=== PATIENT | female | born 1945 | race Caucasian/White ===

== ENCOUNTER 2022-09-11 13:17 | Outpatient (OUT) | payer MEDICARE, OTHER, SELFPAY ==
[2022-09-11 14:45] LABS: Cholesterol 221 mg/dL (<=200); HDL Cholesterol 44 mg/dL (40-60); Thyroid Stimulating Hormone 1.567 uIU/mL (0.358-3.740); Triglycerides 272 mg/dL (<=150); VLDL CHOLESTEROL 54.4 mg/dL
== END 2022-09-11 13:18 | disposition home or self-care (01) ==
LOC: LAB 13:17
PROVIDERS: PCP Internal Medicine; Visit Provider Internal Medicine
DX: E78.5 Hyperlipidemia, unspecified (principal); K59.00 Constipation, unspecified
CPT/HCPCS: 36415; 80061; 84443

== ENCOUNTER 2022-11-10 10:50 | Emergency (ER) | payer MEDICARE, OTHER, SELFPAY ==
[2022-11-10 11:01] VITALS: BP 149/75; PULSE 112; RESP 16; TEMP 36.9; O2SAT 93; BMI 22.1
--- NOTE | 2022-11-10 11:23 | ED_ITS ---
HPI - General Adult General Chief complaint: Extremity Problem, Nontraumatic Stated complaint: R LEG PAIN Time Seen by Provider: 11/10/22 11:00 Source: patient Mode of arrival: Wheelchair Limitations: no limitations History of Present Illness HPI narrative: patient brought in by niece for evaluation after the patient complained of pain in multiple joints and spasms of the right thigh this morning. On questioning the patient has been experiencing intermittent and polyarthralgias and occasional joint swelling without deformity of the fingers or toes. She has not discussed this with her PCP, Dr Archuleta. She said her temp was 100F this morning but she is afebrile here. She denied vomiting or diarrhea - said she has chronic constipation. No history of gout. She took half of a Mobic tab - not prescribed to her - this morning for the pain, which is now improved. Related Data Previous Rx's Medication Instructions Recorded cephalexin 500 mg capsule 500 mg PO BID 7 days #14 caps 11/10/22 Allergies Allergy/AdvReac Type Severity Reaction Status Date / Time No Known Drug Allergies Allergy Verified 11/10/22 11:05 [facility] Social History Smoking status: Never smoker Exam Narrative Exam Narrative: Nurses notes and vital signs reviewed and patient is not hypoxic. afebrile General: Well-appearing and in no apparent distress. Skin: Warm, dry, no pallor noted. No rash. Eye: Pupils are equal, round and EOMI. No scleral icterus. Cardiovascular: Regular Rate and Rhythm without murmur, gallop or rub. Respiratory: No accessory muscle use or respiratory distress. Lungs are clear to auscultation, no wheezing, rales or rhonchi Back: No midline thoracic or lumbar vertebral tenderness. No CVA tenderness Musculoskeletal: normal ROM, no calf or popliteal tenderness, no lower extremity edema/swelling GI: Abdomen is soft, non-distended. Normal bowel sounds. No masses appreciated. No tenderness to palpation. No rebound, guarding, or rigidity noted. Neurological: A&O x4. No cranial nerve dysfunction observed. No truncal ataxia. Moves all extremities. Sensation intact. Psychiatric: Cooperative and interactive. Normal mood and affect. Constitutional Vital Signs, click to edit/add: Last Vital Signs Temp 98.5 F 11/10/22 11:01 Pulse 112 H 11/10/22 11:01 Resp 16 11/10/22 11:01 BP 149/75 H 11/10/22 11:01 Pulse Ox 93 L 11/10/22 11:01 O2 Del Method Room Air 11/10/22 11:01 Course Vital Signs Vital signs: Vital Signs Temperature 98.5 F 11/10/22 11:01 Pulse Rate 112 H 11/10/22 11:01 Respiratory Rate 16 11/10/22 11:01 Blood Pressure 149/75 H 11/10/22 11:01 Pulse Oximetry 93 L 11/10/22 11:01 Oxygen Delivery Method Room Air 11/10/22 11:01 Temperature 98.5 F 11/10/22 11:01 Pulse Rate 112 H 11/10/22 11:01 Respiratory Rate 16 11/10/22 11:01 Blood Pressure 149/75 H 11/10/22 11:01 Pulse Oximetry 93 L 11/10/22 11:01 Oxygen Delivery Method Room Air 11/10/22 11:01 Medical Decision Making MDM Narrative Medical decision making narrative: the patient presents with polyarthralgias and intermittent associated swelling of joints that seems to wax and wane over the last year. She has not seen her primary care provider for this. At this time the patient is improved after taking half of a moped Earlier this morning. I do not find any sign of septic arthritis, deep venous thrombosis or other worrisome pathology on examination. Blood was drawn and sent for testing including CBC, BMP, sedimentation rate, CRP and uric acid. I suspicion is that she has some sort of connective tissue or rheumatic disorder that is causing polyarthralgias that wax and wane. Ultimately she will need to see her primary care provider for follow-up and definitive testing. She was given IM Solu-Medrol and oral Tylenol in the emergency Department while we awaited her test results. patient's blood testing revealed elevated white blood cell count at 16k with left shift, elevated sedimentation rate, elevated CRP and normal uric acid. I asked her to give us a urine sample to rule out UTI in light of her elevated WBC and fever earlier at home. UA revealed leuk est so I prescribed keflex for the patient to take at home She can see Dr Don for follow up. Lab Data Lab results reviewed: Yes I reviewed the patient's lab results Labs: Lab Results 11/10/22 11/10/22 Range/Units 11:38 12:32 WBC 16.1 H (4.0-11.0) 10^3/uL RBC 4.59 (4.20-5.40) 10^6/uL Hgb 13.5 (12.0-16.0) g/dL Hct 40.1 (36.0-48.0) % MCV 87.4 (81.0-99.0) fL MCH 29.4 (26.7-34.0) pg MCHC 33.7 (29.9-35.2) g/dL RDW 12.8 (11.0-15.0) % Plt Count 207 (150-450) 10^3/uL MPV 10.0 (9.5-13.5) fL Neut % (Auto) 90.5 H (43.0-75.0) % Lymph % (Auto) 2.0 L (20.5-60.0) % [place] % (Auto) 6.9 (1.7-12.0) % Eos % (Auto) 0.0 L (0.9-7.0) % Baso % (Auto) 0.2 (0.2-2.0) % Neut # (Auto) 14.6 H (1.4-6.5) 10^3/uL Lymph # (Auto) 0.3 L (1.2-3.8) 10^3/uL [place] # (Auto) 1.1 H (0.3-0.8) 10^3/uL Eos # (Auto) 0.0 (0.0-0.7) 10^3/uL Baso # (Auto) 0.0 (0.0-0.1) 10^3/uL Abs Immat Gran (auto) 0.07 H (0.00-0.03) 10^3/uL Imm/Tot Granulo (auto) 0.4 (0.0-0.5) % ESR 58 H (<=30) mm/hr Sodium 136 (136-145) mmol/L Potassium 3.9 (3.5-5.1) mmol/L Chloride 101 (98-107) mmol/L Carbon Dioxide 22.7 (21.0-32.0) mmol/L Anion Gap 16.2 BUN 23.0 H (7.0-18.0) mg/dL Creatinine 1.13 H (0.55-1.02) mg/dL Est GFR ( Amer) 56 L (>=60) Est GFR (Non-Af Amer) 46 L (>=60) BUN/Creatinine Ratio 20.4 Glucose 134 H (74-106) mg/dL Uric Acid 3.9 (2.6-6.0) mg/dL Calcium 8.9 (8.5-10.1) mg/dL C-Reactive Protein 11.7 H (<=1.0) mg/dL Urine Color Lt. yellow (YELLOW) Urine Clarity Clear (CLEAR) Urine pH 6.0 (5.0-9.0) Ur Specific [place] 1.015 (1.005-1.025) Urine Protein Negative (NEG/TRACE) mg/dL Urine Glucose (UA) Negative (NEGATIVE) mg/dL Urine Ketones Negative (NEGATIVE) mg/dL Urine Occult Blood Trace-i (NEGATIVE) Urine Nitrite Negative (NEGATIVE) Urine Bilirubin Negative (NEGATIVE) Urine Urobilinogen 0.2 (0.2-1.0) EU/dL Ur Leukocyte Esterase Trace A (NEGATIVE) Discharge Plan Discharge Chief Complaint: Extremity Problem, Nontraumatic Clinical Impression: Polymyalgia, Acute UTI Patient Disposition: Home, Self-Care Time of Disposition Decision: 12:52 Prescriptions / Home Meds: New cephalexin 500 mg capsule 500 mg PO BID 7 Days Qty: 14 0RF Instructions: Polymyalgia Rheumatica (ED), Urinary Tract Infection in Older Adults (ED) Stand Alone Forms: Portal Instructions Referrals: Shaikh Archuleta MD [Primary Care Provider] - 1 week
[2022-11-10] MEDS: ACETAMINOPHEN 500 MG TABLET 1000 MG PO (11:45)
[2022-11-10] MEDS: METHYLPREDNISOLONE SOD SUCC PF 125 MG/2 ML VIAL IM (11:45)
[2022-11-10 11:48] LABS: Basophils Percent Auto 0.2 % (0.2-2.0); Hematocrit 40.1 % (36.0-48.0); Hemoglobin 13.5 g/dL (12.0-16.0); Immature Granulocytes Abs Auto 0.07 10^3/uL (0.00-0.03); Immature Granulocytes Pct Auto 0.4 % (0.0-0.5); Lymphocytes Absolute Auto 0.3 10^3/uL (1.2-3.8); Mean Corpuscular HGB Conc 33.7 g/dL (29.9-35.2); Mean Corpuscular Hemoglobin 29.4 pg (26.7-34.0); Mean Corpuscular Volume 87.4 fL (81.0-99.0); Monocytes Absolute Auto 1.1 10^3/uL (0.3-0.8); Monocytes Percent Auto 6.9 % (1.7-12.0); Neutrophils Absolute Auto 14.6 10^3/uL (1.4-6.5); Neutrophils Percent Auto 90.5 % (43.0-75.0); Platelet Count 207 10^3/uL (150-450); Red Blood Count 4.59 10^6/uL (4.20-5.40); Red Cell Distribution Width 12.8 % (11.0-15.0); White Blood Count 16.1 10^3/uL (4.0-11.0)
[2022-11-10 12:01] LABS: Anion Gap 16.2; BUN Creatinine Ratio 20.4; C Reactive Protein 11.7 mg/dL (<=1.0); Calcium 8.9 mg/dL (8.5-10.1); Carbon Dioxide 22.7 mmol/L (21.0-32.0); Chloride 101 mmol/L (98-107); Estimated GFR (African America 56 (>=60); Estimated GFR (Non-African Ame 46 (>=60); Glucose 134 mg/dL (74-106); Potassium 3.9 mmol/L (3.5-5.1); Sodium 136 mmol/L (136-145); Uric Acid 3.9 mg/dL (2.6-6.0)
[2022-11-10 12:03] LABS: Erythrocyte Sedimentation Rate 58 mm/hr (<=30)
[2022-11-10 12:41] LABS: Bilirubin Urine NEGATIVE (NEGATIVE); Blood Urine TRACE-I (NEGATIVE); Clarity Urine CLEAR (CLEAR); Color Urine LT. YELLOW (YELLOW); Glucose Urine UA NEGATIVE (NEGATIVE); Ketones Urine NEGATIVE (NEGATIVE); Leukocyte Esterase Urine TRACE (NEGATIVE); Nitrite Urine NEGATIVE (NEGATIVE); Protein Urine NEGATIVE (NEG/TRACE); Specific Gravity Urine 1.015 (1.005-1.025); Urobilinogen Urine 0.2 EU/dL (0.2-1.0)
[2022-11-10 12:43] LABS: Urine Microscopic Indicated YES
[2022-11-10 13:02] LABS: Bacteria Urine NONE SEEN #/HPF (NONE SEEN); Mucus Urine NONE SEEN (NONE SEEN); RBC Urine 0-2 #/HPF (0-2); Squamous Epithelial Cell Urine RARE #/LPF (NONE/RARE); WBC Urine 0-2 #/HPF (NONE SEEN)
[2022-11-10 13:03] LABS: Cast Seen? NONE SEEN #/LPF (NONE SEEN); Crystals Seen? None Seen #/HPF (None Seen); Urine Culture Indicated ALREADY ORDERED
== END 2022-11-10 13:02 | disposition home or self-care (01) ==
PROVIDERS: Emergency Provider Emergency Medicine; PCP Internal Medicine
DX: N39.0 Urinary tract infection, site not specified (principal); M35.3 Polymyalgia rheumatica; M79.604 Pain in right leg
CPT/HCPCS: 36415; 80048; 81001; 84550; 85025; 85652; 86140; 87086; 96372; 99284; J2930

== ENCOUNTER 2022-11-15 13:12 | Outpatient (OUT) | payer MEDICARE, OTHER, SELFPAY ==
[2022-11-15 13:29] LABS: Basophils Absolute Auto 0.1 10^3/uL (0.0-0.1); Basophils Percent Auto 0.5 % (0.2-2.0); Eosinophils Absolute Auto 0.6 10^3/uL (0.0-0.7); Hematocrit 40.5 % (36.0-48.0); Hemoglobin 13.3 g/dL (12.0-16.0); Immature Granulocytes Abs Auto 0.11 10^3/uL (0.00-0.03); Immature Granulocytes Pct Auto 1.1 % (0.0-0.5); Lymphocytes Absolute Auto 2.3 10^3/uL (1.2-3.8); Lymphocytes Percent Auto 23.4 % (20.5-60.0); Mean Corpuscular HGB Conc 32.8 g/dL (29.9-35.2); Mean Corpuscular Volume 88.4 fL (81.0-99.0); Mean Platelet Volume 9.6 fL (9.5-13.5); Monocytes Absolute Auto 0.7 10^3/uL (0.3-0.8); Monocytes Percent Auto 6.9 % (1.7-12.0); Neutrophils Absolute Auto 6.1 10^3/uL (1.4-6.5); Neutrophils Percent Auto 62.1 % (43.0-75.0); Platelet Count 262 10^3/uL (150-450); Red Blood Count 4.58 10^6/uL (4.20-5.40); Red Cell Distribution Width 12.7 % (11.0-15.0); White Blood Count 9.7 10^3/uL (4.0-11.0)
[2022-11-15 13:35] LABS: Erythrocyte Sedimentation Rate 77 mm/hr (<=30)
[2022-11-15 14:16] LABS: C Reactive Protein 3.1 mg/dL (<=1.0); Uric Acid 4.3 mg/dL (2.6-6.0)
[2022-11-16 04:07] LABS: Antistreptolysin O Ab 41.3 IU/mL (0.0-200.0); Rheumatoid Factor (RF) 25.4 IU/mL (<14.0)
[2022-11-16 12:12] LABS: Anti-CCP Ab, IgG/IgA 18 units (0-19); Antinuclear Antibodies, IFA Positive (.)
== END 2022-11-15 13:13 | disposition home or self-care (01) ==
LOC: LAB 13:12
PROVIDERS: PCP Internal Medicine; Visit Provider Internal Medicine
DX: M19.90 Unspecified osteoarthritis, unspecified site (principal); D72.829 Elevated white blood cell count, unspecified
CPT/HCPCS: 36415; 84550; 85025; 85652; 86038; 86060; 86140; 86200; 86430; 86431

== ENCOUNTER 2023-08-14 12:54 | Outpatient (OUT) | payer MEDICARE, OTHER, SELFPAY ==
[2023-08-14 13:48] LABS: C Reactive Protein 0.72 mg/dL (<=0.50); Estimated GFR (African America 57 (>=60); Estimated GFR (Non-African Ame 47 (>=60)
[2023-08-14 13:52] LABS: Basophils Absolute Auto 0.1 10^3/uL (0.0-0.1); Basophils Percent Auto 0.9 % (0.2-2.0); Eosinophils Absolute Auto 0.3 10^3/uL (0.0-0.7); Eosinophils Percent Auto 3.3 % (0.9-7.0); Hematocrit 40.4 % (36.0-48.0); Hemoglobin 13.2 g/dL (12.0-16.0); Immature Granulocytes Abs Auto 0.03 10^3/uL (0.00-0.03); Immature Granulocytes Pct Auto 0.4 % (0.0-0.5); Lymphocytes Absolute Auto 2.4 10^3/uL (1.2-3.8); Lymphocytes Percent Auto 28.5 % (20.5-60.0); Mean Corpuscular HGB Conc 32.7 g/dL (29.9-35.2); Mean Corpuscular Hemoglobin 28.1 pg (26.7-34.0); Mean Corpuscular Volume 86.1 fL (81.0-99.0); Mean Platelet Volume 10.1 fL (9.5-13.5); Monocytes Absolute Auto 0.7 10^3/uL (0.3-0.8); Monocytes Percent Auto 7.8 % (1.7-12.0); Neutrophils Percent Auto 59.1 % (43.0-75.0); Platelet Count 217 10^3/uL (150-450); Red Blood Count 4.69 10^6/uL (4.20-5.40); Red Cell Distribution Width 13.2 % (11.0-15.0); White Blood Count 8.5 10^3/uL (4.0-11.0)
[2023-08-14 14:21] LABS: Erythrocyte Sedimentation Rate 99 mm/hr (<=30)
[2023-08-14 14:57] LABS: Bilirubin Urine NEGATIVE (NEGATIVE); Blood Urine NEGATIVE (NEGATIVE); Clarity Urine CLEAR (CLEAR); Color Urine LT. YELLOW (YELLOW); Glucose Urine UA NEGATIVE (NEGATIVE); Ketones Urine NEGATIVE (NEGATIVE); Leukocyte Esterase Urine TRACE (NEGATIVE); Nitrite Urine NEGATIVE (NEGATIVE); Protein Urine NEGATIVE (NEG/TRACE); Urobilinogen Urine 0.2 EU/dL (0.2-1.0)
[2023-08-14 15:40] LABS: Bacteria Urine NONE SEEN #/HPF (NONE SEEN); Crystals Seen? None Seen #/HPF (None Seen); Mucus Urine NONE SEEN (NONE SEEN); Squamous Epithelial Cell Urine FEW #/LPF (NONE/RARE)
[2023-08-14 15:41] LABS: Cast Seen? NONE SEEN #/LPF (NONE SEEN)
[2023-08-15 08:12] LABS: Complement C3, Serum 145 mg/dL (82-167); Complement C4, Serum 35 mg/dL (12-38)
== END 2023-08-14 12:55 | disposition home or self-care (01) ==
LOC: LAB 12:54
PROVIDERS: Visit Provider Internal Medicine Rheumatology
DX: M25.50 Pain in unspecified joint (principal); R76.0 Raised antibody titer
CPT/HCPCS: 36415; 81001; 82565; 85025; 85652; 86140; 86160

== ENCOUNTER 2023-09-11 15:42 | Emergency (ER) | payer MEDICARE, OTHER, SELFPAY ==
[2023-09-11 15:49] VITALS: BP 143/89; PULSE 119; TEMP 36.8; O2SAT 94; BMI 22.1
--- NOTE | 2023-09-11 16:05 | ECG_ITS ---
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
--- NOTE | 2023-09-11 16:10 | ED.GENADUL1 ---
HPI HPI - General Adult General Chief complaint: Dizziness Stated complaint: Dizziness, Falls Time Seen by Provider: 09/11/23 15:46 Source: patient Mode of arrival: walk-in Limitations: no limitations History of Present Illness HPI narrative: Patient is an 78-year-old female with a history of dizziness and inner ear problems who presents to the emergency department at the recommendation of urgent care for CT scanning. Patient has had falls associated with the dizziness, she denies any pain, injury, loss of consciousness. She is not anticoagulated. She states that she does have some sinus pressure and typically her doctor treats these issues with an antibiotic and she feels fine. She denies any current dizziness, chest pain, shortness of breath. She has had no visual changes, peripheral paresthesias. She states occasionally the change in position causes her to feel nauseous and dizzy but she has not had any vomiting or diarrhea. Urgent care recommended she come to the ER for CT scan. Related Data Home Medications ?Medication ?Instructions ?Recorded ?Confirmed hydroxychloroquine 200 mg tablet 200 mg PO DAILY 09/11/23 09/11/23 Previous Rx's ?Medication ?Instructions ?Recorded cephalexin 500 mg capsule 500 mg PO BID 7 days #14 caps 11/10/22 cefuroxime axetil 500 mg tablet 500 mg PO BID 10 days #20 tabs 09/11/23 meclizine 25 mg chewable tablet 25 mg PO QID PRN dizziness #12 tabs 09/11/23 (Antivert) Allergies Allergy/AdvReac Type Severity Reaction Status Date / Time No Known Drug Allergies Allergy Verified 11/10/22 11:05 Opioid HPI Opioid Management Most Recent Opioid Data: Last Pain Scale 5 11/10/22 11:11 Review of Systems ROS Constitutional Denies: fever or chills Ears, nose, mouth, and throat Reports: nasal congestion; Denies: throat pain Cardiovascular Denies: chest pain Respiratory Denies: shortness of breath Gastrointestinal Reports: nausea; Denies: vomiting or diarrhea Musculoskeletal Denies: back pain or neck pain Integumentary/Breast Denies: rash Neurological Reports: dizziness; Denies: headache, numbness in extremities or weakness in extremities Hematologic/Lymphatic Denies: easy bruising or easy bleeding PFSH PFSH Social History Smoking status: Never smoker Exam Narrative Exam Narrative: Gen.: Awake, alert, in no distress, sitting comfortably on exam cart Head: Normocephalic, atraumatic ENT: Moist mucous membranes, left TM is clear, right TM is obscured by light brown wax Respiratory: No respiratory distress, lungs clear bilaterally Cardio: Regular rate and rhythm Gastrointestinal: Abdomen is soft, nondistended and nontender to palpation Extremities: Moves extremities equally Psych: Normal mood and affect Neuro: No focal neuro deficit Skin: Warm, dry, intact Constitutional Vital Signs, click to edit/add: Last Vital Signs Temp 98.2 F 09/11/23 15:49 Pulse 119 H 09/11/23 15:49 Resp 18 09/11/23 15:49 BP 143/89 H 09/11/23 15:49 Pulse Ox 94 L 09/11/23 15:49 O2 Del Method Room Air 09/11/23 15:49 Course Vital Signs Vital signs: Vital Signs Temperature 98.2 F 09/11/23 15:49 Pulse Rate 119 H 09/11/23 15:49 Respiratory Rate 18 09/11/23 15:49 Blood Pressure 143/89 H 09/11/23 15:49 Pulse Oximetry 94 L 09/11/23 15:49 Oxygen Delivery Method Room Air 09/11/23 15:49 Temperature 98.2 F 09/11/23 15:49 Pulse Rate 119 H 09/11/23 15:49 Respiratory Rate 18 09/11/23 15:49 Blood Pressure 143/89 H 09/11/23 15:49 Pulse Oximetry 94 L 09/11/23 15:49 Oxygen Delivery Method Room Air 09/11/23 15:49 Medical Decision Making [facility] Narrative Medical decision making narrative: Patient refused to change into a gown, she refused IV placement and urine testing. She states that she recently saw her environmental health technologist and does not feel she needs another urine specimen obtained. She has no current complaints of dizziness, nausea. She has not had any chest pain or shortness of breath. EKG was obtained, patient is agreeable to a lab draw and CT of the brain. Patient is given Debrox for home in addition to cefuroxime and Antivert. Follow-up with PCP and return to the ER if symptoms change or worsen. ENT referral given for home. SUPERVISED APC VISIT, PHYSICIAN ATTESTATION: Based on the medical record the care appears appropriate. ? Medical Records Medical records reviewed: Yes I reviewed the patient's medical records Lab Data Lab results reviewed: Yes I reviewed the patient's lab results Labs: Lab Results 09/11/23 Range/Units 16:26 WBC 7.4 (4.0-11.0) 10^3/uL RBC 4.46 (4.20-5.40) 10^6/uL Hgb 12.8 (12.0-16.0) g/dL Hct 38.8 (36.0-48.0) % MCV 87.0 (81.0-99.0) fL MCH 28.7 (26.7-34.0) pg MCHC 33.0 (29.9-35.2) g/dL RDW 13.1 (11.0-15.0) % Plt Count 187 (150-450) 10^3/uL MPV 10.0 (9.5-13.5) fL Neut % (Auto) 70.0 (43.0-75.0) % Lymph % (Auto) 17.0 L (20.5-60.0) % [place] % (Auto) 8.6 (1.7-12.0) % Eos % (Auto) 3.1 (0.9-7.0) % Baso % (Auto) 0.9 (0.2-2.0) % Neut # (Auto) 5.2 (1.4-6.5) 10^3/uL Lymph # (Auto) 1.3 (1.2-3.8) 10^3/uL [place] # (Auto) 0.6 (0.3-0.8) 10^3/uL Eos # (Auto) 0.2 (0.0-0.7) 10^3/uL Baso # (Auto) 0.1 (0.0-0.1) 10^3/uL Abs Immat Gran (auto) 0.03 (0.00-0.03) 10^3/uL Imm/Tot Granulo (auto) 0.4 (0.0-0.5) % Sodium 140 (136-145) mmol/L Potassium 3.8 (3.5-5.1) mmol/L Chloride 105 (98-107) mmol/L Carbon Dioxide 22.7 (21.0-32.0) mmol/L Anion Gap 16.1 BUN 17.0 (7.0-18.0) mg/dL Creatinine 1.05 H (0.55-1.02) mg/dL Est GFR ( Amer) >60 (>=60) Est GFR (Non-Af Amer) 50 L (>=60) BUN/Creatinine Ratio 16.2 Glucose 165 H (74-106) mg/dL Calcium 8.7 (8.5-10.1) mg/dL Total Bilirubin 0.2 (0.2-1.0) mg/dL AST 10 L (15-37) U/L ALT 17 (14-59) U/L Alkaline Phosphatase 126 H (46-116) U/L Troponin I High Sens 4.4 (4.0-51.3) pg/mL Total Protein 6.4 (6.4-8.2) g/dL Albumin 3.1 L (3.4-5.0) g/dL Globulin 3.3 g/dL Albumin/Globulin Ratio 0.9 TSH 1.532 (0.358-3.740) uIU/mL Imaging Data CT scan - head: Attestation: I have reviewed the pertinent imaging results. Radiologist's impression: ITS Impressions Head CT 09/11/23 16:45 IMPRESSION: No acute intracranial process is noted. Electronically authenticated by: VALE VALDEZ Date: 09/11/2023 17:20 ECG Data Attestation: I personally reviewed and interpreted this ECG as follows: (Sinus tachycardia at a rate of 109, no acute ST elevation or ectopy. EKG reviewed by attending physician.) Discharge Plan Discharge Stand Alone Forms: Portal Instructions Chief Complaint: Dizziness Clinical Impression: Dizziness, Right ear impacted cerumen Patient Disposition: Home, Self-Care Time of Disposition Decision: 17:46 Condition: Good Prescriptions / Home Meds: New meclizine [Antivert] 25 mg tablet,chewable 25 mg PO QID PRN (Reason: dizziness) Qty: 12 0RF cefuroxime axetil 500 mg tablet 500 mg PO BID 10 Days Qty: 20 0RF No Action hydroxychloroquine 200 mg tablet 200 mg PO DAILY cephalexin 500 mg capsule 500 mg PO BID 7 Days Qty: 14 0RF Print Language: Indonesian Instructions: Dizziness (ED) Referrals: Aleja Reyes MD [Physician] - As needed Physician,Non-Staff, [Primary Care Provider] - 1 week
--- NOTE | 2023-09-11 16:45 | CT_ITS ---
The [address] [address] Patient Name: ANDRES CHANDLER MRN: [id number] date: 1945 Sex: F Assigned Patient Location: ER Current Patient Location: ER Accession/Order Number: [id number] Exam Date: 09/11/2023 16:35 Report Date: 09/11/2023 17:20 At the request of: DNONY JIN Procedure: CT head/brain wo con CT head/brain wo con, 09/11/2023 4:35 PM EDT INDICATION: Dizziness COMPARISON: There is no appropriate prior study for comparison. TECHNIQUE: Axial CT images of the brain from skull base to vertex, including portions of the face and sinuses, were obtained without contrast . Multiplanar reformatted images were generated and reviewed as needed. Dose reduction techniques were achieved by using automated exposure control and/or adjustment of mA and/or kV according to patient size and/or use of iterative reconstruction technique. FINDINGS: The cerebral sulci as well as ventricular system are enlarged consistent with moderate ex vacuo cerebral volume loss. There is no intracranial mass, mass effect, midline shift, intra or extra-axial fluid collection or hemorrhage. Periventricular and centrum semiovale hypodensities are most likely consistent with microvascular ischemic changes. The visualized portions of orbits, mastoid air cells as well as paranasal sinuses are unremarkable. There is no suspicious osteolytic or osteoblastic lesion. CT/CT head/brain wo con IMPRESSION: No acute intracranial process is noted. Electronically authenticated by: VALE VALDEZ Date: 09/11/2023 17:20
[2023-09-11 16:56] LABS: Basophils Absolute Auto 0.1 10^3/uL (0.0-0.1); Basophils Percent Auto 0.9 % (0.2-2.0); Eosinophils Absolute Auto 0.2 10^3/uL (0.0-0.7); Eosinophils Percent Auto 3.1 % (0.9-7.0); Hematocrit 38.8 % (36.0-48.0); Hemoglobin 12.8 g/dL (12.0-16.0); Immature Granulocytes Abs Auto 0.03 10^3/uL (0.00-0.03); Immature Granulocytes Pct Auto 0.4 % (0.0-0.5); Lymphocytes Absolute Auto 1.3 10^3/uL (1.2-3.8); Mean Corpuscular Hemoglobin 28.7 pg (26.7-34.0); Monocytes Absolute Auto 0.6 10^3/uL (0.3-0.8); Monocytes Percent Auto 8.6 % (1.7-12.0); Neutrophils Absolute Auto 5.2 10^3/uL (1.4-6.5); Platelet Count 187 10^3/uL (150-450); Red Blood Count 4.46 10^6/uL (4.20-5.40); Red Cell Distribution Width 13.1 % (11.0-15.0); White Blood Count 7.4 10^3/uL (4.0-11.0)
[2023-09-11 17:02] LABS: INR 0.95; Prothrombin Time 10.1 sec (9.0-11.6)
[2023-09-11 17:22] LABS: Alanine Aminotransferase 17 U/L (14-59); Albumin Globulin Ratio 0.9; Albumin Level 3.1 g/dL (3.4-5.0); Alkaline Phosphatase 126 U/L (46-116); Anion Gap 16.1; Aspartate Amino Transferase 10 U/L (15-37); BUN Creatinine Ratio 16.2; Bilirubin Total 0.2 mg/dL (0.2-1.0); Calcium 8.7 mg/dL (8.5-10.1); Carbon Dioxide 22.7 mmol/L (21.0-32.0); Chloride 105 mmol/L (98-107); Estimated GFR (African America >60 (>=60); Estimated GFR (Non-African Ame 50 (>=60); Globulin 3.3 g/dL; Glucose 165 mg/dL (74-106); Potassium 3.8 mmol/L (3.5-5.1); Sodium 140 mmol/L (136-145); Total Protein 6.4 g/dL (6.4-8.2)
[2023-09-11 17:32] LABS: Thyroid Stimulating Hormone 1.532 uIU/mL (0.358-3.740); Troponin I High Sensitivity 4.4 pg/mL (4.0-51.3)
[2023-09-11 17:50] VITALS: BP 120/76; PULSE 87; O2SAT 96
[2023-09-11] MEDS: CARBAMIDE PEROXIDE 6.5% EAR DROPS 300 DROP/15 ML BOTTLE 10 DROP OT (17:50)
== END 2023-09-11 18:17 | disposition home or self-care (01) ==
PROVIDERS: Physician Assistant; Emergency Provider Student in an Organized Health Care Education/Training Program
DX: R42 Dizziness and giddiness (principal); H61.21 Impacted cerumen, right ear; R11.0 Nausea; Z79.899 Other long term (current) drug therapy
CPT/HCPCS: 36415; 70450; 80053; 84443; 84484; 85025; 85610; 93005; 99285

== ENCOUNTER 2023-12-18 13:04 | Outpatient (OUT) | payer MEDICARE, OTHER, SELFPAY ==
[2023-12-18 13:33] LABS: Basophils Absolute Auto 0.1 10^3/uL (0.0-0.1); Eosinophils Absolute Auto 0.3 10^3/uL (0.0-0.7); Eosinophils Percent Auto 3.1 % (0.9-7.0); Hematocrit 39.6 % (36.0-48.0); Hemoglobin 13.3 g/dL (12.0-16.0); Immature Granulocytes Abs Auto 0.05 10^3/uL (0.00-0.03); Immature Granulocytes Pct Auto 0.6 % (0.0-0.5); Lymphocytes Absolute Auto 1.9 10^3/uL (1.2-3.8); Lymphocytes Percent Auto 22.5 % (20.5-60.0); Mean Corpuscular HGB Conc 33.6 g/dL (29.9-35.2); Mean Corpuscular Hemoglobin 29.1 pg (26.7-34.0); Mean Corpuscular Volume 86.7 fL (81.0-99.0); Mean Platelet Volume 10.1 fL (9.5-13.5); Monocytes Absolute Auto 0.7 10^3/uL (0.3-0.8); Monocytes Percent Auto 8.3 % (1.7-12.0); Neutrophils Absolute Auto 5.4 10^3/uL (1.4-6.5); Neutrophils Percent Auto 64.5 % (43.0-75.0); Platelet Count 196 10^3/uL (150-450); Red Blood Count 4.57 10^6/uL (4.20-5.40); Red Cell Distribution Width 13.2 % (11.0-15.0); White Blood Count 8.3 10^3/uL (4.0-11.0)
[2023-12-18 13:40] LABS: C Reactive Protein 0.91 mg/dL (<=0.50); Estimated GFR (African America 56 (>=60 mL/min/1.73m^2); Estimated GFR (Non-African Ame 46 (>=60 mL/min/1.73m^2); Uric Acid 4.2 mg/dL (2.6-6.0)
[2023-12-18 13:44] LABS: Bilirubin Urine NEGATIVE (NEGATIVE); Blood Urine NEGATIVE (NEGATIVE); Clarity Urine CLEAR (CLEAR); Color Urine LT. YELLOW (YELLOW); Glucose Urine UA NEGATIVE (NEGATIVE); Ketones Urine NEGATIVE (NEGATIVE); Leukocyte Esterase Urine SMALL (NEGATIVE); Nitrite Urine NEGATIVE (NEGATIVE); Protein Urine NEGATIVE (NEG/TRACE); Specific Gravity Urine 1.015 (1.005-1.025); Urobilinogen Urine 0.2 EU/dL (0.2-1.0)
[2023-12-18 13:54] LABS: Bacteria Urine TRACE #/HPF (NONE SEEN); Mucus Urine NONE SEEN (NONE SEEN); RBC Urine 0-2 #/HPF (0-2)
[2023-12-18 13:55] LABS: Cast Seen? NONE SEEN #/LPF (NONE SEEN); Crystals Seen? None Seen #/HPF (None Seen); Squamous Epithelial Cell Urine RARE #/LPF (NONE/RARE)
[2023-12-18 14:05] LABS: Erythrocyte Sedimentation Rate 21 mm/hr (<=30)
[2023-12-19 08:15] LABS: Complement C3, Serum 135 mg/dL (82-167); Complement C4, Serum 33 mg/dL (12-38)
[2023-12-20 15:09] LABS: Albumin 3.3 g/dL (2.9-4.4); Alpha-1-Globulin 0.3 g/dL (0.0-0.4); Alpha-2-Globulin 0.8 g/dL (0.4-1.0); Free Kappa Lt Chains,S 22.8 mg/L (3.3-19.4); Free Lambda Lt Chains,S 15.2 mg/L (5.7-26.3); Gamma Globulin 0.6 g/dL (0.4-1.8); Immunoglobulin A, Qn, Serum 161 mg/dL (64-422); Immunoglobulin G, Qn, Serum 699 mg/dL (586-1602); Immunoglobulin M, Qn, Serum 46 mg/dL (26-217); Protein, Total 5.9 g/dL (6.0-8.5)
== END 2023-12-18 13:05 | disposition home or self-care (01) ==
LOC: LAB 13:04
PROVIDERS: Visit Provider Internal Medicine Rheumatology
DX: R70.0 Elevated erythrocyte sedimentation rate (principal); R76.0 Raised antibody titer
CPT/HCPCS: 36415; 81001; 82565; 82784; 83521; 84155; 84165; 84550; 85025; 85652; 86140; 86160

== ENCOUNTER 2024-01-06 13:36 | Outpatient (REF) | payer MEDICARE, OTHER, SELFPAY ==
--- OUTSIDE RECORDS SUMMARY | 2024-01-06 13:53 | XMS_ITS | CCD ---
Author Organization [facility] Inform ion Partnership [facility] Care Team Providers Care Tax Manager Cpa Name Role Phone RICHIE FELICIANO Attending Unavailable RICHIE FELICIANO Admitting Unavailable RICHIE FELICIANO Consulting Unavailable SHAIKH Lynsey ARCHULETA Admitting Unavailable SHAIKH Lynsey ARCHULETA Primary Care Unavailable SHAIKH Lynsey ARCHULETA Consulting Unavailable SHAIKH Lynsey ARCHULETA Attending Unavailable Diamond Barajas Unavailable MD Soto Garcia Attending Provider Shaikh Archuleta Primary Care Unavailable Soto Garcia Attending Unavailable Soto Garcia Admitting Unavailable Issa Diop MD Primary Care Provider Kathleen Jessica NP Unavailable SHAIKH ARCHULETA Attending Unavailable KATHLEEN JESSICA Attending UnavailAILYN Augustine Attending Unavailable SHAIKH ARCHULETA Attending Unavailable Medications Current Medications Medication Drug Class(es) Dates Sig (Normalized) Sig (Original) hydroxychloroquine sulfate 200 mg oral tablet (4 sources) Antimalarial, Antirheumatic Agent Start: Hydroxychloroquine Active MG PO September 11, 2023 12:00am Start: 01-08-2023 take 1 tablet by wero th in the morning hydroxychloroquine (Plaquenil) 200 MG tablet Take 200 mg by mouth in the morning. 01/08/2023 Active ibuprofen 200 mg oral tablet (5 sources) Nonsteroidal Anti-inflammatory Drug Start: 09-11-2023 take 1 tablet by mouth twice daily Ibuprofen (Advil) 200 mg tablet Active 200 MG PO Twice daily September 11, 2023 12:00am take 1 tablet by mouth once ja y ibuprofen 200 MG tablet Take 200 mg by mouth 1 (one) time each day Active Advil Active meclizine hydrochloride 12.5 mg oral tablet (3 sources) Antiemetic Start: 04-30-2022 meclizine (Ant ivert) 12.5 MG tablet TAKE 1 TABLET BY MOUTH 2 TO 3 TIMES A DAY IF NEEDED FOR DIZZINESS 04/30/2022 Active Problems Active Problems Problem Classification Problem Date Documented Date Episodic/Chronic Administrative/socia l admission (1 source) Persons encountering health services in other specified circumstances; Translations: [PERS ENC [facility] OTH CIRCUMSTANCE] Onset: 09-22-2021 Episodic Conditions associated with dizziness or vertigo (4 sources) Peripheral vertigo; Translations: [Benign paroxysmal vertigo, bilateral] Onset: 09-30-2023 09-30-2023 Episodic Diabetes mellitus with complications (1 source) Type 2 diabetes mellitus with hyperglycemia; Translations: [TYPE 2 DM W/HYPERGLYCEMIA] Onset: 12-26-2020 Chronic Diabetes mellitus without complication (1 source) Other abnormal glucose; Translations: [OTHER ABNORMAL GLUCOSE] Onset: 09-22-2021 Episodic Disorders of lipid metabolism (2 sources) Hyperlipidemia, unspecified; Translations: [Pure hypercholesterolemia, unspecified] Onset: 12-26-2020 Chronic Essential hypertension (1 source) Essential (primary) hypertension; Translations: [ESSENTIAL PRIMARY HYPERTENSION] Onset: 09-22-2021 Chronic Immunizations and screening for infectious disease (2 sources) Contact with and (suspected) exposure to other viral communicable diseases; Translations: [Contact with and (suspected) exposure to other viral communicable diseases] Onset: 10-19-2021 Resolved: 10-19-2021 Episodic Osteoarthritis (3 sources) Chronic arthritis; Translations: [Unspecified osteoarthritis, unspecified site] Onset: 01-28-2023 01-28-2023 Chronic Other ear and sense organ disorders (1 source) Asymmetrical sensorineural hearing loss; Translations: [Sensorineural hearing loss, bilateral] 12-10-2023 Chronic Other non-traumatic joint disorders (1 source) Pain in unspecified joint; Translations: [Pain in unspecified joint] Onset: 11-28-2022 Episodic Other screening for suspected conditions (not mental disorders or infectious disease) (10 sources) Encounter for screening for lipoid disorders; Translations: [Encounter for screening for diabetes mellitus] Onset: 12-19-2020 Episodic Other upper respiratory disease (3 sources) Seasonal allergy; Translations: [Other seasonal allergic rhinitis] Onset: 01-28-2023 01-28-2023 Chronic Systemic lupus erythematosus and connective tissue disorders (3 sources) Undifferentiated connective tissue disease; Translations: [Systemic involvement of connective tissue, unspecified] Onset: 01-28-2023 01-28-2023 Chronic Past or Other Problems Problem Classification Problem Date Documented Da te Episodic/Chronic Mood disorders (3 sources) Mood disorders Onset: 01-28-2023 01-28-2023 Other ear and sense organ disorders (3 sources) Impacted cerumen of bilateral ears; Translations: [Impacted cerumen, bilateral] Onset: 06-05-2023 06-05-2023 Episodic Otitis media and related conditions (3 sources) Bilateral recurrent acute serous otitis media of middle ears; Translations: [Acute serous otitis media, recurrent, bilateral] Onset: 06-05-2023 06-05-2023 Episodic Viral infection (1 source) COVID-19 Onset: 10-19-2021 Resolved: 10-19-2021 Results Test Name Value Interpretation Reference Range Facility Auditory function testson Right Ear: Mild sensorineural hearing loss from 250 Hz - 3K Hz rising to normal hearing loss at 4K Hz. Moderate to severe hearing loss above 4K Hz. Left Ear: Mild sloping to profound sensorineural hearing loss above 500 Hz Hallpike: Pt has back issues and had difficulty moving from sit to supine and supine to sit. Head Left: NEGATIVE Head Right: NEGATIVE [facility] LUCY Antinuclear Antibodieson 11-28-2022 Antinuclear Abs, IFA Positive Critically abnormal . [facility] Comment on above: Result Comment: Nega tive <1:80 Borderline 1:80 Positive >1:80 Performed By: #### C BC, ESR, CRP, CMP #### [facility] [address] [place] [address] [place] #### CH50, C4, C3, LUCY #### [facility] , Homogeneous Pattern 1:80 Normal . [facility] Comment on above: Result Comment: ICAP nomenclature: [id number] Performed By: #### C BC, ESR, CRP, CMP #### [address] #### CH50, C4, C3, LUCY #### [facility] , Note 1 Normal . [facility] Comment on above: Result Comment: Donya limon Potential Disease Association Homogeneous Systemic Lupus Erythematosus, Drug Induced Systemic Lupus Erythematosus, Chronic Autoimmune hepatitis, Juvenile Idiopathic Arthritis Speckled Sjogren Syndrome, Systemic Lupus Erythematosus, Subacute Cutaneous Lupus, Lupus, Congenital Heart Block, Mixed Connective Tissue Disease, Scleroderma-diffuse, Scleroderma-Autoimmune Myositis Overlap Syndrome, Systemic Lupus Ruppfocuqwmhv-Vdcnttlgyms-Jslzxffnfu Myositis Overlap Syndrome, Systemic Autoimmune Rheumatic Disease, Undifferentiated Connective Tissue Disease Nucleolar Systemic Sclerosis, Scleroderma-Autoimmune Myositis Overlap Syndrome, Sjogren Syndrome, Raynaud phenomenon, Pulmonary Arterial Hypertension, Systemic Autoimmune Rheumatic Disease, Cancer Centromere Scleroderma-CREST, Limited Cutaneous SSc, Raynaud's Phenomenon, Primary Biliary Cholangitis Nuclear Dot Primary Biliary Cholangitis Nuclear Primary Biliary Cholangitis, Autoimmune Membrane Hepatitis/Liver disease, Systemic Autoimmune Rheumatic Disease, Autoimmune Cytopenias, Linear Scleroderma, Antiphospholipid Syndrome Performed at: [facility] [address] [id number] Operations Research Engineer: Saurabh Tobin PhD, Phone: [phone] Performed By: #### C BC, ESR, CRP, CMP #### [facility] [address] [place] [address] [place] #### CH50, C4, C3, LUCY #### [facility] , Speckled Pattern 1:640 High . [facility] Comment on above: Result Comment: ICAP nomenclature: [id number],4,5,29 Performed By: #### C BC, ESR, CRP, CMP #### [facility] [address] [place] [address] [place] #### CH50, C4, C3, LUCY #### [facility] , Alanine aminotransferase [En zymatic activity/volume] in Serum or PlasmaOrdered By: Soto Garcia on 11-28-2022 ALT [Catalytic activity/Vol] 10 U/L 7-52 [facility] Albumin [Mass/volume] in Ser um or Plasma by Bromocresol green (BCG) dye binding methoOrdered By: Soto Garcia on 11-28-2022 Albumin BCG dye [Mass/Vol] 4.0 g/dL 3.5-5.7 [facility] Alkaline phosphatase [Enzyma tic activity/volume] in Serum or PlasmaOrdered By: Soto Garcia on 11-28-2022 ALP [Catalytic activity/Vol] 104 U/L 34-104 [facility] Aspartate aminotransferase [ Enzymatic activity/volume] in Serum or PlasmaOrdered By: Soto Garcia on 11-28-2022 AST [Catalytic activity/Vol] 12 U/L 13-39 [facility] Basophils Auto (Bld) [#/Vol] Ordered By: Soto Garcia on 11-28-2022 Basophils (Bld) [#/Vol] 0.1 10*3/uL 0.0-0.2 [facility] Basophils/100 WBC Auto (Bld) Ordered By: Soto Garcia on 11-28-2022 Basophils/100 WBC (Bld) 1.2 % . [facility] Bilirubin.total [Mass/volume ] in Serum or PlasmaOrdered By: Soto Garcia on 11-28-2022 Bilirubin [Mass/Vol] 0.3 mg/dL 0.3-1.0 [facility] C reactive protein [Mass/vol ume] in Serum or PlasmaOrdered By: Soto Garcia on 11-28-2022 CRP [Mass/Vol] 2.8 mg/dL 0.0-0.5 [facility] C-Reactive Proteinon 023 C-Reactive Protein 2.8 mg/dL High 0.0-0.5 [facility] Comment on above: Result Comment: PERF ORMED BY: [place] [address] PATHOLOGIST BOAT RENTAL CLERK MILLICENT OCONNOR M.D. Performed By: #### C BC, ESR, CRP, CMP #### [address] #### CH50, C4, C3, LUCY #### [facility] , Calcium [Mass/volume] in Ser um or PlasmaOrdered By: Soto Garcia on 11-28-2022 Calcium [Mass/Vol] 9.2 mg/dL 8.6-10.3 [facility] Carbon dioxide, total [Moles /volume] in Serum or PlasmaOrdered By: Soto Garcia on 11-28-2022 CO2 [Moles/Vol] 24.0 mmol/L 21.0-31.0 [facility] Chloride [Moles/volume] in S stephanie or PlasmaOrdered By: Soto Garcia on 11-28-2022 Chloride [Moles/Vol] 107 mmol/L 98-107 [facility] Complement C3on 11-28-2022 Complement C3 159 mg/dL Normal 82-167 [facility] Comment on above: Result Comment: Perf ormed at: - [facility] [id number] Operations Research Engineer: Saurabh Tobin PhD, Phone: [phone] Performed By: #### C BC, ESR, CRP, CMP #### [address] #### CH50, C4, C3, LUCY #### [facility] , Complement C4on 11-28-2022 Complement C4 42 mg/dL High 12-38 [facility] Comment on above: Result Comment: PERF ORMED BY: [place] [address] PATHOLOGIST BOAT RENTAL CLERK MILLICENT OCONNOR M.D. Performed By: #### C BC, ESR, CRP, CMP #### [facility] [address] [place] [address] #### CH50, C4, C3, LUCY #### [facility] , Complement Total (CH50)on Complement Total (CH50) >60 Normal >41 [facility] Comment on above: Result Comment: Age Male Female 1 - 30 days Not Estab. Not Estab. 31 days - 6 months >32 >20 7 months - 17 years >39 >39 >17 years >41 >41 NOTE: The adult ( >17 years ) reference interval range is used to flag abnormals on this report. If the patient is 17 years old or younger, use the table above to determine out of range values. Performed at: [facility] [id number] Operations Research Engineer: Saurabh Tobin PhD, Phone: [phone] PERFORMED BY: [place] [address] PATHOLOGIST BOAT RENTAL CLERK MILLICENT OCONNOR M.D. Performed By: #### C BC, ESR, CRP, CMP #### [address] #### CH50, C4, C3, LUCY #### [facility] , Complete Blood Count Auto Di ffon 11-28-2022 Basophils (Bld) [#/Vol] 0.1 10*3/uL Normal 0.0-0.2 [facility] Comment on above: Performed By: #### C BC, ESR, CRP, CMP #### [address] #### CH50, C4, C3, LUCY #### [facility] , Basophils/100 WBC (Bld) 1.2 % Normal . [facility] Comment on above: Performed By: #### C BC, ESR, CRP, CMP #### [address] #### CH50, C4, C3, LUCY #### [facility] , Eosinophils (Bld) [#/Vol] 0.3 10*3/uL Normal 0.0-0.45 [facility] Comment on above: Performed By: #### C BC, ESR, CRP, CMP #### [address] #### CH50, C4, C3, LUCY #### [facility] , Eosinophils/100 WBC (Bld) 4.1 % Normal . [facility] Comment on above: Performed By: #### C BC, ESR, CRP, CMP #### [place] [address] [place] #### CH50, C4, C3, LUCY #### [facility] , Erythrocyte distribution width (RBC) [Ratio] 13.6 % Normal 11.9-15.3 [facility] Comment on above: Performed By: #### C BC, ESR, CRP, CMP #### [place] [address] [place] #### CH50, C4, C3, LUCY #### [facility] , Hematocrit (Bld) [Volume fraction] 39.1 % Normal 34.0-46.4 [facility] Comment on above: Performed By: #### C BC, ESR, CRP, CMP #### [place] [address] [place] #### CH50, C4, C3, LUCY #### [facility] , Hemoglobin (Bld) [Mass/Vol] 13.1 g/dL Normal 11.8-15.4 [facility] Comment on above: Performed By: #### C BC, ESR, CRP, CMP #### [address] #### CH50, C4, C3, LUCY #### [facility] , Lymphocytes (Bld) [#/Vol] 1.9 10*3/uL Normal 1.00-4.8 [facility] Comment on above: Performed By: #### C BC, ESR, CRP, CMP #### [address] #### CH50, C4, C3, LUCY #### [facility] , Lymphocytes/100 WBC (Bld) 25.2 % Normal . [facility] Comment on above: Performed By: #### C BC, ESR, CRP, CMP #### [place] [address] [place] #### CH50, C4, C3, LUCY #### [facility] , MCH (RBC) [Entitic mass] 28.6 pg Normal 24.7-34.3 [facility] Comment on above: Performed By: #### C BC, ESR, CRP, CMP #### [place] [address] [place] #### CH50, C4, C3, LUCY #### [facility] , MCV (RBC) [Entitic vol] 85.4 fL Normal 80-100 [facility] Comment on above: Performed By: #### C BC, ESR, CRP, CMP #### [place] [address] [place] #### CH50, C4, C3, LUCY #### [facility] , Mean Corpuscular HGB Conc 33.5 g/dL Normal 32.0-35.0 [facility] Comment on above: Performed By: #### C BC, ESR, CRP, CMP #### [place] [address] [place] #### CH50, C4, C3, LUCY #### [facility] , Monocytes (Bld) [#/Vol] 0.5 10*3/uL Normal 0.0-0.8 [facility] Comment on above: Performed By: #### C BC, ESR, CRP, CMP #### [place] [address] [place] #### CH50, C4, C3, LUCY #### [facility] , Monocytes/100 WBC (Bld) 7.4 % Normal . [facility] Comment on above: Performed By: #### C BC, ESR, CRP, CMP #### [place] [address] [place] #### CH50, C4, C3, LUCY #### [facility] , Neutrophils (Bld) [#/Vol] 4.6 10*3/uL Normal 1.8-7.7 [facility] Comment on above: Performed By: #### C BC, ESR, CRP, CMP #### [place] [address] [place] #### CH50, C4, C3, LUCY #### [facility] , Neutrophils/100 WBC (Bld) 62.1 % Normal . [facility] Comment on above: Performed By: #### C BC, ESR, CRP, CMP #### [place] [address] [place] #### CH50, C4, C3, LUCY #### [facility] , NRBC% 0.1 /100{WBC} Normal 0-0.5 [facility] Comment on above: Performed By: #### C BC, ESR, CRP, CMP #### [address] #### CH50, C4, C3, LUCY #### [facility] , Platelet mean volume (Bld) [Entitic vol] 8.4 fL Normal 6.3-10.7 [facility] Comment on above: Performed By: #### C BC, ESR, CRP, CMP #### [place] [address] [place] #### CH50, C4, C3, LUCY #### [facility] , Platelets (Bld) [#/Vol] 218 10*3/uL Normal 150-450 [facility] Comment on above: Performed By: #### C BC, ESR, CRP, CMP #### [address] #### CH50, C4, C3, LUCY #### [facility] , RBC (Bld) [#/Vol] 4.58 10*6/uL Normal 3.60-5.00 [facility] Comment on above: Performed By: #### C BC, ESR, CRP, CMP #### [place] [address] [place] #### CH50, C4, C3, LUCY #### [facility] , WBC (Bld) [#/Vol] 7.4 10*3/uL Normal 3.8-11.6 [facility] Comment on above: Performed By: #### C BC, ESR, CRP, CMP #### [place] [address] [place] #### CH50, C4, C3, LUCY #### [facility] , Comprehensive Metabolic Pane bryan 11-28-2022 Albumin [Mass/Vol] 4.0 g/dL Normal 3.5-5.7 [facility] Comment on above: Performed By: #### C BC, ESR, CRP, CMP #### [place] [address] [place] #### CH50, C4, C3, LUCY #### [facility] , Albumin/Globulin [Mass ratio] 1.5 {ratio} Normal [facility] Comment on above: Performed By: #### C BC, ESR, CRP, CMP #### [address] #### CH50, C4, C3, LUCY #### [facility] , ALP [Catalytic activity/Vol] 104 U/L Normal 34-104 [facility] Comment on above: Performed By: #### C BC, ESR, CRP, CMP #### [place] [address] [place] #### CH50, C4, C3, LUCY #### [facility] , ALT [Catalytic activity/Vol] 10 U/L Normal 7-52 [facility] Comment on above: Performed By: #### C BC, ESR, CRP, CMP #### [place] [address] [place] #### CH50, C4, C3, LUCY #### [facility] , Anion gap [Moles/Vol] 13.4 mmol/L Normal 6.0-15.0 [facility] Comment on above: Performed By: #### C BC, ESR, CRP, CMP #### [place] [address] [place] #### CH50, C4, C3, LUCY #### [facility] , AST [Catalytic activity/Vol] 12 U/L Low 13-39 [facility] Comment on above: Performed By: #### C BC, ESR, CRP, CMP #### [facility] [address] [place] [address] #### CH50, C4, C3, LUCY #### [facility] , Bilirubin [Mass/Vol] 0.3 mg/dL Normal 0.3-1.0 [facility] Comment on above: Performed By: #### C BC, ESR, CRP, CMP #### [facility] [address] [place] [address] #### CH50, C4, C3, LUCY #### [facility] , Calcium [Mass/Vol] 9.2 mg/dL Normal 8.6-10.3 [facility] Comment on above: Performed By: #### C BC, ESR, CRP, CMP #### [facility] [address] [place] [address] [place] #### CH50, C4, C3, LUCY #### [facility] , Chloride [Moles/Vol] 107 mmol/L Normal 98-107 [facility] Comment on above: Performed By: #### C BC, ESR, CRP, CMP #### [address] #### CH50, C4, C3, LUCY #### [facility] , CO2 [Moles/Vol] 24.0 mmol/L Normal 21.0-31.0 [facility] Comment on above: Performed By: #### C BC, ESR, CRP, CMP #### [facility] [address] [place] [address] [place] #### CH50, C4, C3, LUCY #### [facility] , Creatinine [Mass/Vol] 0.90 mg/dL Normal 0.60-1.20 [facility] Comment on above: Performed By: #### C BC, ESR, CRP, CMP #### [place] [address] [place] #### CH50, C4, C3, LUCY #### [facility] , GFR/1.73 sq M.predicted MDRD (S/P/Bld) [Vol rate/Area] mL/min/{1.73_m2} Normal [facility] Comment on above: Performed By: #### C BC, ESR, CRP, CMP #### [place] [address] [place] #### CH50, C4, C3, LUCY #### [facility] , Globulin (S) [Mass/Vol] 2.7 g/dL Normal [facility] Comment on above: Performed By: #### C BC, ESR, CRP, CMP #### [place] [address] [place] #### CH50, C4, C3, LUCY #### [facility] , Glucose [Mass/Vol] 94 mg/dL Normal 70-100 [facility] Comment on above: Result Comment: [facility] Glucose Reference Range is dependent on time and content of last meal. Glucose of more than 200 mg/dL in a nonstressed, ambulatory subject supports the diagnosis of Diabetes Mellitus. ADA recommended reference range Performed By: #### C BC, ESR, CRP, CMP #### [place] [address] [place] #### CH50, C4, C3, LUCY #### [facility] , Potassium [Moles/Vol] 4.4 mmol/L Normal 3.5-5.1 [facility] Comment on above: Performed By: #### C BC, ESR, CRP, CMP #### [place] [address] [place] #### CH50, C4, C3, LUCY #### [facility] , Protein [Mass/Vol] 6.7 g/dL Normal 6.4-8.9 [facility] Comment on above: Performed By: #### C BC, ESR, CRP, CMP #### [facility] [address] [place] [address] [place] #### CH50, C4, C3, LUCY #### [facility] , Sodium [Moles/Vol] 140 mmol/L Normal 136-145 [facility] Comment on above: Performed By: #### C BC, ESR, CRP, CMP #### [facility] [address] [place] [address] [place] #### CH50, C4, C3, LUCY #### [facility] , Urea nitrogen [Mass/Vol] 17 mg/dL Normal 7-25 [facility] Comment on above: Performed By: #### C BC, ESR, CRP, CMP #### [place] [address] [place] #### CH50, C4, C3, LUCY #### [facility] , Creatinine [Mass/volume] in Serum or PlasmaOrdered By: Soto Garcia on 11-28-2022 Creatinine [Mass/Vol] 0.90 mg/dL 0.60-1.20 [facility] Eosinophils Auto (Bld) [#/Vo l]Ordered By: Soto Garcia on 11-28-2022 Eosinophils (Bld) [#/Vol] 0.3 10*3/uL 0.0-0.45 [facility] Eosinophils/100 WBC Auto (Bl d)Ordered By: Soto Garcia on 11-28-2022 Eosinophils/100 WBC (Bld) 4.1 % . [facility] Erythrocyte Sedimentation Ra steph 11-28-2022 ESR (Bld) [Velocity] 42 mm/h High 0-29 [facility] Comment on above: Result Comment: PERF ORMED BY: [place] [address] PATHOLOGIST BOAT RENTAL CLERK MILLICENT OCONNOR M.D. Performed By: #### C BC, ESR, CRP, CMP #### [facility] [address] [place] [address] [place] #### CH50, C4, C3, LUCY #### [facility] , Erythrocyte distribution wid th Auto (RBC) [Ratio]Ordered By: Soto Garcia on 11-28-2022 Erythrocyte distribution width (RBC) [Ratio] 13.6 % 11.9-15.3 [facility] Erythrocyte sedimentation ra te by Photometric methodOrdered By: Soto Garcia on 11-28-2022 ESR Photometric method (Bld) [Velocity] 42 mm/hr 0-29 [facility] Globulin Calc (S) [Mass/Vol] Ordered By: Soto Garcia on 11-28-2022 Globulin (S) [Mass/Vol] 2.7 g/dL [facility] Glucose [Mass/volume] in Ser um or PlasmaOrdered By: Soto Garcia on 11-28-2022 Glucose [Mass/Vol] 94 mg/dL 70-100 [facility] Comment on above: ADA recommended refe rence rangeRandom Glucose Reference Range is dependent on time and content of last meal. Glucose of more than 200 mg/dL in a nonstressed, ambulatory subject supports the diagnosis of Diabetes Mellitus. Hematocrit Auto (Bld) [Volum e fraction]Ordered By: Soto Garcia on 11-28-2022 Hematocrit (Bld) [Volume fraction] 39.1 % 34.0-46.4 [facility] Hemoglobin [Mass/volume] in BloodOrdered By: Soto Garcia on 11-28-2022 Hemoglobin (Bld) [Mass/Vol] 13.1 g/dL 11.8-15.4 [facility] Hep C Ab wRfx to Qnt PCRon 1 Hepatitis C Virus Antibody Non-Reactive Normal Non Reactive [facility] Comment on above: Performed By: #### H BSAB, HCV RX PCR, HBCAB, HBSAG #### [facility] , Interpretation Hepatitis C Normal . [facility] Comment on above: Result Comment: Not infected with HCV unless early or acute infection is suspected (which may be delayed in an immunocompromised individual), or other evidence exists to indicate HCV infection. Performed By: #### H BSAB, HCV RX PCR, HBCAB, HBSAG #### [facility] , Hepatitis B Core Antibodyon 11-28-2022 Hepatitis B Core Antibody Negative Normal Negative [facility] Comment on above: Result Comment: Perf ormed at: - [facility] [address] [id number] Operations Research Engineer: Saurabh Tobin PhD, Phone: [phone] Performed By: #### C BC, ESR, CRP, CMP #### [facility] [address] [place] [address] #### CH50, C4, C3, LUCY #### [facility] , Hepatitis B Surface Antibody on 11-28-2022 Hepatitis B Surface Antibody Non-Reactive Normal . [facility] Comment on above: Result Comment: Non Reactive: Inconsistent with immunity, less than 10 mIU/mL Reactive: Consistent with immunity, greater than 9.9 mIU/mL Performed By: #### H BSAB, HCV RX PCR, HBCAB, HBSAG #### [facility] , Hepatitis B Surface Antigeno n 11-28-2022 HBsAg Screen Negative Normal Negative [facility] Comment on above: Result Comment: PERF ORMED BY: [place] [address] PATHOLOGIST BOAT RENTAL CLERK MILLICENT OCONNOR M.D. Performed By: #### C BC, ESR, CRP, CMP #### [facility] [address] [place] [address] #### CH50, C4, C3, LUCY #### [facility] , Leukocytes [#/volume] correc lauren for nucleated erythrocytes in Blood by Automated counOrdered By: Soto Garcia on 11-28-2022 WBC corrected for nucl RBC Auto (Bld) [#/Vol] 7.4 10*3/uL 3.8-11.6 [facility] Lymphocytes Auto (Bld) [#/Vo l]Ordered By: Soto Garcia on 11-28-2022 Lymphocytes (Bld) [#/Vol] 1.9 10*3/uL 1.00-4.8 [facility] Lymphocytes/100 WBC Auto (Bl d)Ordered By: Soto Garcia on 11-28-2022 Lymphocytes/100 WBC (Bld) 25.2 % . [facility] MCH Auto (RBC) [Entitic mass ]Ordered By: Soto Garcia on 11-28-2022 MCH (RBC) [Entitic mass] 28.6 pg 24.7-34.3 [facility] MCHC Auto (RBC) [Mass/Vol]Or dered By: Soto Garcia on 11-28-2022 MCHC (RBC) [Mass/Vol] 33.5 g/dL 32.0-35.0 [facility] MCV Auto (RBC) [Entitic vol] Ordered By: Soto Garcia on 11-28-2022 MCV (RBC) [Entitic vol] 85.4 fL 80-100 [facility] Monocytes Auto (Bld) [#/Vol] Ordered By: Soto Garcia on 11-28-2022 Monocytes (Bld) [#/Vol] 0.5 10*3/uL 0.0-0.8 [facility] Monocytes/100 WBC Auto (Bld) Ordered By: Soto Garcia on 11-28-2022 Monocytes/100 WBC (Bld) 7.4 % . [facility] Neutrophils Auto (Bld) [#/Vo l]Ordered By: Soto Garcia on 11-28-2022 Neutrophils (Bld) [#/Vol] 4.6 10*3/uL 1.8-7.7 [facility] Neutrophils/100 WBC Auto (Bl d)Ordered By: Soto Garcia on 11-28-2022 Neutrophils/100 WBC (Bld) 62.1 % . [facility] No Panel InformationOrdered By: Soto Garcia on 11-28-2022 Estimated GFR (CKD-EPI) > 60.0 mL/Min [facility] Creatinine Clearance (Chem N/A [facility] Nucleated erythrocytes [Pres ence] in Blood by Automated countOrdered By: Soto Garcia on 11-28-2022 Nucleated RBC Auto Ql (Bld) 0.1 /100{WBC} 0-0.5 [facility] Platelet mean volume Auto (B ld) [Entitic vol]Ordered By: Soto Garcia on 11-28-2022 Platelet mean volume (Bld) [Entitic vol] 8.4 fL 6.3-10.7 [facility] Platelets Auto (Bld) [#/Vol] Ordered By: Soto Garcia on 11-28-2022 Platelets (Bld) [#/Vol] 218 10*3/uL 150-450 [facility] Potassium [Moles/volume] in Serum or PlasmaOrdered By: Soto Garcia on 11-28-2022 Potassium [Moles/Vol] 4.4 mmol/L 3.5-5.1 [facility] Protein [Mass/volume] in Ser um or PlasmaOrdered By: Soto Garcia on 11-28-2022 Protein [Mass/Vol] 6.7 g/dL 6.4-8.9 [facility] RBC Auto (Bld) [#/Vol]Ordere d By: Soto Garcia on 11-28-2022 RBC (Bld) [#/Vol] 4.58 10*6/uL 3.60-5.00 [facility] Serum or plasma albumin/glob ulin mass ratioOrdered By: Soto Garcia on 11-28-2022 Albumin/Globulin [Mass ratio] 1.5 {ratio} [facility] Serum or plasma anion gap de terminationOrdered By: Soto Garcia on 11-28-2022 Anion gap [Moles/Vol] 13.4 mmol/L 6.0-15.0 [facility] Sodium [Moles/volume] in Ser um or PlasmaOrdered By: Soto Garcia on 11-28-2022 Sodium [Moles/Vol] 140 mmol/L 136-145 [facility] Urea nitrogen [Mass/volume] in Serum or PlasmaOrdered By: Soto Garcia on 11-28-2022 Urea nitrogen [Mass/Vol] 17 mg/dL 7-25 [facility] WBC Auto (Bld) [#/Vol]Ordere d By: Soto Garcia on 11-28-2022 WBC (Bld) [#/Vol] 7.4 10*3/uL 3.8-11.6 [facility] XR hand BI 2Von 11-28-2022 XR hand BI 2V [facility] [place] [address] [place] [address] XRay Report Signed Patient: Do Girard I MR#: [id number] : 1945 Acct:[id number] Age/Sex: 77 / F ADM Date: 11/28/22 Loc: ICXD Room: Type: [facility] Attending Dr: Soto Garcia MD Copies to: Soto Garcia MD Ordering Provider: Soto Garcia MD Date of Service: 11/28/22 XR/XR hand BI 2V: pain XR hand BI 2V 11/28/2022 2:38 PM SIGNS AND SYMPTOMS: Right hand pain and swelling with redness PROTOCOL: Frontal and lateral radiographs of the bilateral hands COMPARISON: None FINDINGS: There is mild narrowing of the distal interphalangeal joints of the second digits bilaterally and right fifth digit. The bones are in anatomic alignment. There is mild narrowing of the first carpo metacarpal joint and metacarpophalangeal joint space bilaterally. There is no fracture or dislocation. There is mild nonspecific soft tissue swelling diffusely along the right hand. XR/XR hand BI 2V IMPRESSION: No fracture or dislocation. There is mild nonspecific soft tissue swelling diffusely along the right hand. Degenerative changes are noted, as above. Impression dictated by: Kavin Israel M.D.11/28/2022 5:28 PM Dictation Location: [place] [address] Transcribed By: [facility] 11/28/221727 Dictated By: Kavin Israel II, MD 11/28/221726 Signed By: 11/28/221727 Normal [facility] COVID Quick Testingon 2021 Result Positive [facility] Other CBC AUTO DIFFon 09-21-2021 BASO # 0.1 103/ul Normal 0.0-0.1 [facility] Comment on above: Performed By: #### C BC #### [facility] [address] [place] [address] Dr. Pauly Garner Basophils/100 WBC (Bld) 0.9 % Normal 0.2-2.0 [facility] Comment on above: Performed By: #### C BC #### [facility] [address] [place] [address] Dr. Pauly Garner EO # 0.2 103/ul Normal 0.0-0.7 [facility] Comment on above: Performed By: #### C BC #### [facility] [address] [place] [address] Dr. Pauly Garner Eosinophils/100 WBC (Bld) 2.9 % Normal 0.9-7.0 [facility] Comment on above: Performed By: #### C BC #### [facility] [address] [place] [address] Dr. Pauly Garner Erythrocyte distribution width (RBC) [Ratio] 13.1 % Normal 11.0-15.0 [facility] Comment on above: Performed By: #### C BC #### [facility] [address] [place] [address] Dr. Pauly Garner Hematocrit (Bld) [Volume fraction] 44.4 % Normal 36.0-48.0 [facility] Comment on above: Performed By: #### C BC #### [facility] [address] [place] [address] Dr. Pauly Garner Hemoglobin (Bld) [Mass/Vol] 14.3 g/dL Normal 12.0-16.0 [facility] Comment on above: Performed By: #### C BC #### [facility] [address] [place] [address] Dr. Pauly Garner IG # 0.03 10e3/ul Normal 0.00-0.03 [facility] Comment on above: Performed By: #### C BC #### [facility] [address] [place] [address] Dr. Pauly Garner IG % 0.5 % Normal 0.0-0.5 [facility] Comment on above: Performed By: #### C BC #### [facility] [address] [place] [address] Dr. Pauly Garner LYMPH # 1.7 103/ul Normal 1.2-3.8 [facility] Comment on above: Performed By: #### C BC #### [facility] [address] [place] [address] Dr. Pauly Garner Lymphocytes/100 WBC (Bld) 26.7 % Normal 20.5-60.0 [facility] Comment on above: Performed By: #### C BC #### [facility] [address] [place] [address] Dr. Pauly Garner MANUAL DIFF REQ NO Normal [facility] Comment on above: Performed By: #### C BC #### [facility] [address] [place] [address] Dr. Pauly Garner MCH (RBC) [Entitic mass] 28.8 pg Normal 26.7-34.0 [facility] Comment on above: Performed By: #### C BC #### [facility] [address] [place] [address] Dr. Pauly Garner MCHC (RBC) [Mass/Vol] 32.2 g/dL Normal 29.9-35.2 [facility] Comment on above: Performed By: #### C BC #### [facility] [address] [place] [address] Dr. Pauly Garner MCV (RBC) [Entitic vol] 89.5 fL Normal 81.0-99.0 [facility] Comment on above: Performed By: #### C BC #### [facility] [address] [place] [address] Dr. Pauly Garner MONO # 0.5 103/ul Normal 0.3-0.8 [facility] Comment on above: Performed By: #### C BC #### [facility] [address] [place] [address] Dr. Pauly Garner Monocytes/100 WBC (Bld) 6.9 % Normal 1.7-12.0 [facility] Comment on above: Performed By: #### C BC #### [facility] [address] [place] [address] Dr. Pauly Garner NEUT # 4.0 103/ul Normal 1.4-6.5 [facility] Comment on above: Performed By: #### C BC #### [facility] [address] [place] [address] [address] Pauly Garner Neutrophils/100 WBC (Bld) 62.1 % Normal 43.0-75.0 [facility] Comment on above: Performed By: #### C BC #### [facility] [address] [place] [address] [address] Pauly Garner Platelet mean volume (Bld) [Entitic vol] 10.3 fL Normal 9.5-13.5 [facility] Comment on above: Performed By: #### C BC #### [facility] [address] [place] [address] [address] Pauly Garner PLT 201 103/ul Normal 150-450 [facility] Comment on above: Performed By: #### C BC #### [facility] [address] [place] [address] Dr. Pauly Garner RBC 4.96 106/ul Normal 4.20-5.40 [facility] Comment on above: Performed By: #### C BC #### [facility] [address] [place] [address] [address] Pauly Garner WBC 6.5 103/ul Normal 4.0-11.0 [facility] Comment on above: Performed By: #### C BC #### [facility] [address] [place] [address] Dr. Pauly Garner GLYCOHEMOGLOBIN A1Con 2021 ADA RECOMMENDATION SEE BELOW Normal [facility] Comment on above: Result Comment: ADA RECOMMENDED LIMIT 4.0 - 6.0 ADA THERAPEUTIC TARGET < 7.0 ACTION SUGGESTED > 7.0 Performed By: #### A 1C #### [facility] [address] [place] [address] Dr. Pauly Garner Glucose [Mass/Vol] 108 mg/dL Normal [facility] Comment on above: Performed By: #### A 1C #### [facility] [address] [place] [address] Dr. Pauly Garner HbA1c (Bld) [Mass fraction] 5.4 % Normal 4.5-6.2 [facility] Comment on above: Performed By: #### A 1C #### [facility] [address] [place] [address] [address] Pauly Garner LIPID PROFILEon 09-21-2021 CHOL-HDL RATIO NORM SEE BELOW Normal [facility] Comment on above: Result Comment: 3.3 - 4.4 LOW RISK 4.4 - 7.1 AVERAGE RISK 7.1 - 11.0 MODERATE RISK >11.0 HIGH RISK Performed By: #### L IPID, BMP #### [facility] [address] [place] [address] [address] Pauly Garner Cholesterol [Mass/Vol] 235 mg/dL Critically high <=200 [facility] Comment on above: Performed By: #### L IPID, BMP #### [facility] [address] [place] [address] [address] Pauly Garner Cholesterol in HDL [Mass/Vol] 48 mg/dL Normal 40-60 [facility] Comment on above: Performed By: #### L IPID, BMP #### [facility] [address] [place] [address] [address] Pauly Garner Cholesterol in LDL [Mass/Vol] 155.8 mg/dL Normal [facility] Comment on above: Performed By: #### L IPID, BMP #### [facility] [address] [place] [address] [address] Pauly Garner Cholesterol.total/Ginny sterol in HDL [Mass ratio] 4.9 {ratio} Normal [facility] Comment on above: Performed By: #### L IPID, BMP #### [facility] [address] [place] [address] [address] Pauly Garner HDL NORMAL > or = 60 mg/dl - LO W CARDIOVASCULAR RISK <40 mg/dl - HIGH CARDIOVASCULAR RISK Normal [facility] Comment on above: Performed By: #### L IPID, BMP #### [facility] [address] [place] [address] [address] Pauly Garner LDL CALC NORMAL SEE BELOW Normal [facility] Comment on above: Result Comment: <100 mg/dl OPTIMAL 100 - 129 mg/dl NEAR OR ABOVE OPTIMAL 130 - 159 mg/dl BORDERLINE HIGH 160 - 189 mg/dl HIGH >190 mg/dl VERY HIGH Performed By: #### L IPID, BMP #### [facility] [address] [place] [address] Dr. Pauly Garner Triglyceride [Mass/Vol] 156 mg/dL Critically high <=150 [facility] Comment on above: Performed By: #### L IPID, BMP #### [facility] [address] [place] [address] Dr. Pauly Garner VLDL CALC 31.2 mg/dL Normal [facility] Comment on above: Performed By: #### L IPID, BMP #### [facility] [address] [place] [address] Dr. Pauly Garner PROF CHEM 8 (BAS METB)on Anion gap [Moles/Vol] 9.5 mmol/L Normal [facility] Comment on above: Performed By: #### L IPID, BMP #### [facility] [address] [place] [address] Dr. Pauly Garner Calcium [Mass/Vol] 9.4 mg/dL Normal 8.5-10.1 [facility] Comment on above: Performed By: #### L IPID, BMP #### [facility] [address] [place] [address] Dr. Pauly Garner Chloride [Moles/Vol] 104 mmol/L Normal 98-107 [facility] Comment on above: Performed By: #### L IPID, BMP #### [facility] [address] [place] [address] Dr. Pauly Garner CO2 [Moles/Vol] 29.1 mmol/L Normal 21.0-32.0 [facility] Comment on above: Performed By: #### L IPID, BMP #### [facility] [address] [place] [address] Dr. Pauly Garner Creatinine [Mass/Vol] 0.89 mg/dL Normal 0.55-1.02 [facility] Comment on above: Performed By: #### L IPID, BMP #### [facility] [address] [place] [address] [address] Pauly Garner EGFR-AF SENEGALESE 60 mL/min/1.73m2 Normal >=60 [facility] Comment on above: Performed By: #### L IPID, BMP #### [facility] [address] [place] [address] Dr. Pauly Garner EGFR-NON AF SENEGALESE 60 mL/min/1.73m2 Normal >=60 [facility] Comment on above: Performed By: #### L IPID, BMP #### [facility] [address] [place] [address] Dr. Pauly Garner Glucose [Mass/Vol] 113 mg/dL Critically high 74-106 [facility] Comment on above: Performed By: #### L IPID, BMP #### [facility] [address] [place] [address] Dr. Pauly Garner Potassium [Moles/Vol] 4.6 mmol/L Normal 3.5-5.1 [facility] Comment on above: Performed By: #### L IPID, BMP #### [facility] [address] [place] [address] Dr. Pauly Garner Sodium [Moles/Vol] 138 mmol/L Normal 136-145 [facility] Comment on above: Performed By: #### L IPID, BMP #### [facility] [address] [place] [address] Dr. Pauly Garner Urea nitrogen [Mass/Vol] 18.0 mg/dL Normal 7.0-18.0 [facility] Comment on above: Performed By: #### L IPID, BMP #### [facility] [address] [place] [address] Dr. Pauly Garner Urea nitrogen/Creatinine [Mass ratio] 20.2 mg/mg Normal [facility] Comment on above: Performed By: #### L IPID, BMP #### [facility] [address] [place] [address] Dr. Pauly Garner CBC AUTO DIFFon 12-19-2020 BASO # 0.1 103/ul Normal 0.0-0.1 [facility] Comment on above: Performed By: #### C BC #### [facility] [address] [place] [address] Dr. Pauly Garner Basophils/100 WBC (Bld) 0.9 % Normal 0.2-2.0 [facility] Comment on above: Performed By: #### C BC #### [facility] [address] [place] [address] Dr. Pauly Garner EO # 0.2 103/ul Normal 0.0-0.7 [facility] Comment on above: Performed By: #### C BC #### [facility] [address] [place] [address] Dr. Pauly Garner Eosinophils/100 WBC (Bld) 3.0 % Normal 0.9-7.0 [facility] Comment on above: Performed By: #### C BC #### [facility] [address] [place] [address] Dr. Pauly Garner Erythrocyte distribution width (RBC) [Ratio] 13.1 % Normal 11.0-15.0 [facility] Comment on above: Performed By: #### C BC #### [facility] [address] [place] [address] Dr. Pauly Garner Hematocrit (Bld) [Volume fraction] 44.5 % Normal 36.0-48.0 [facility] Comment on above: Performed By: #### C BC #### [facility] [address] [place] [address] Dr. Pauly Garner Hemoglobin (Bld) [Mass/Vol] 14.4 g/dL Normal 12.0-16.0 [facility] Comment on above: Performed By: #### C BC #### [facility] [address] [place] [address] Dr. Pauly Garner IG # 0.03 10e3/ul Normal 0.00-0.03 [facility] Comment on above: Performed By: #### C BC #### [facility] [address] [place] [address] Dr. Pauly Garner IG % 0.5 % Normal 0.0-0.5 [facility] Comment on above: Performed By: #### C BC #### [facility] [address] [address] [address] Pauly Garner LYMPH # 2.0 103/ul Normal 1.2-3.8 [facility] Comment on above: Performed By: #### C BC #### [facility] [address] [place] [address] Dr. Pauly Garner Lymphocytes/100 WBC (Bld) 31.1 % Normal 20.5-60.0 [facility] Comment on above: Performed By: #### C BC #### [facility] [address] [place] [address] Dr. Pauly Garner MANUAL DIFF REQ NO Normal [facility] Comment on above: Performed By: #### C BC #### [facility] [address] [place] [address] Dr. Pauly Garner MCH (RBC) [Entitic mass] 28.6 pg Normal 26.7-34.0 [facility] Comment on above: Performed By: #### C BC #### [facility] [address] [place] [address] Dr. Pauly Garner MCHC (RBC) [Mass/Vol] 32.4 g/dL Normal 29.9-35.2 [facility] Comment on above: Performed By: #### C BC #### [facility] [address] [place] [address] Dr. Pauly Garner MCV (RBC) [Entitic vol] 88.5 fL Normal 81.0-99.0 [facility] Comment on above: Performed By: #### C BC #### [facility] [address] [place] [address] Dr. Pauly Garner MONO # 0.5 103/ul Normal 0.3-0.8 [facility] Comment on above: Performed By: #### C BC #### [facility] [address] [place] [address] Dr. Pauly Garner Monocytes/100 WBC (Bld) 7.3 % Normal 1.7-12.0 [facility] Comment on above: Performed By: #### C BC #### [facility] [address] [address] [address] Pauly Garner NEUT # 3.8 103/ul Normal 1.4-6.5 [facility] Comment on above: Performed By: #### C BC #### [facility] [address] [place] [address] Dr. Pauly Garner Neutrophils/100 WBC (Bld) 57.2 % Normal 43.0-75.0 [facility] Comment on above: Performed By: #### C BC #### [facility] [address] [place] [address] Dr. Pauly Garner Platelet mean volume (Bld) [Entitic vol] 9.7 fL Normal 9.5-13.5 [facility] Comment on above: Performed By: #### C BC #### [facility] [address] [place] [address] Dr. Pauly Garner PLT 207 103/ul Normal 150-450 [facility] Comment on above: Performed By: #### C BC #### [facility] [address] [place] [address] Dr. Pauly Garner RBC 5.03 106/ul Normal 4.20-5.40 [facility] Comment on above: Performed By: #### C BC #### [facility] [address] [place] [address] Dr. Pauly Garner WBC 6.6 103/ul Normal 4.0-11.0 [facility] Comment on above: Performed By: #### C BC #### [facility] [address] [place] [address] Dr. Pauly Garner GLYCOHEMOGLOBIN A1Con 2020 ADA RECOMMENDATION ADA THERAPEUTIC TARGET 6.0 - 7.0 ACTION SUGGESTED > 7.0 Normal [facility] Comment on above: Performed By: #### A 1C #### [facility] [address] [place] [address] Dr. Pauly Garner Glucose [Mass/Vol] 120 mg/dL Normal [facility] Comment on above: Performed By: #### A 1C #### [facility] [address] [place] [address] Dr. Pauly Garner HbA1c (Bld) [Mass fraction] 5.8 % Normal <=6.0 [facility] Comment on above: Performed By: #### A 1C #### [facility] [address] [address] [address] Pauly Garner LIPID PROFILEon 12-19-2020 CHOL-HDL RATIO NORM SEE BELOW Normal [facility] Comment on above: Result Comment: 3.3 - 4.4 LOW RISK 4.4 - 7.1 AVERAGE RISK 7.1 - 11.0 MODERATE RISK >11.0 HIGH RISK Performed By: #### L IPID, TSH, CMP #### [facility] [address] [address] [address] Pauly Garner Cholesterol [Mass/Vol] 221 mg/dL Critically high <=200 [facility] Comment on above: Performed By: #### L IPID, TSH, CMP #### [facility] [address] [address] [address] Pauly Garner Cholesterol in HDL [Mass/Vol] 54 mg/dL Normal [facility] Comment on above: Performed By: #### L IPID, TSH, CMP #### [facility] [address] [address] [address] Pauly Garner Cholesterol in LDL [Mass/Vol] 141.8 mg/dL Normal [facility] Comment on above: Performed By: #### L IPID, TSH, CMP #### [facility] [address] [address] [address] Pauly Garner Cholesterol.total/Ginny sterol in HDL [Mass ratio] 4.1 {ratio} Normal [facility] Comment on above: Performed By: #### L IPID, TSH, CMP #### [facility] [address] [address] [address] Pauly Garner HDL NORMAL > or = 60 mg/dl - LO W CARDIOVASCULAR RISK <40 mg/dl - HIGH CARDIOVASCULAR RISK Normal [facility] Comment on above: Performed By: #### L IPID, TSH, CMP #### [facility] [address] [address] [address] Pauly Garner LDL CALC NORMAL SEE BELOW Normal [facility] Comment on above: Result Comment: <100 mg/dl OPTIMAL 100 - 129 mg/dl NEAR OR ABOVE OPTIMAL 130 - 159 mg/dl BORDERLINE HIGH 160 - 189 mg/dl HIGH >190 mg/dl VERY HIGH Performed By: #### L IPID, TSH, CMP #### [facility] [address] [address] [address] Pauly Garner Triglyceride [Mass/Vol] 126 mg/dL Normal <=150 T [facility] Comment on above: Performed By: #### L IPID, TSH, CMP #### [facility] [address] [address] [address] Pauly Garner VLDL CALC 25.2 mg/dL Normal [facility] Comment on above: Performed By: #### L IPID, TSH, CMP #### [facility] [address] [address] [address] Pauly Garner PROF 14(COMP METB)on 021 Albumin [Mass/Vol] 3.5 g/dL Normal 3.5-5.0 [facility] Comment on above: Performed By: #### L IPID, TSH, CMP #### [facility] [address] [address] [address] Pauly Garner Albumin/Globulin [Mass ratio] 0.9 {ratio} Normal [facility] Comment on above: Performed By: #### L IPID, TSH, CMP #### [facility] [address] [address] [address] Pauly Garner ALP [Catalytic activity/Vol] 122 U/L Normal 38-126 [facility] Comment on above: Performed By: #### L IPID, TSH, CMP #### [facility] [address] [address] [address] Pauly Garner ALT [Catalytic activity/Vol] 17 U/L Normal 9-52 [facility] Comment on above: Performed By: #### L IPID, TSH, CMP #### [facility] [address] [address] [address] Pauly Garner Anion gap [Moles/Vol] 13.8 mmol/L Normal [facility] Comment on above: Performed By: #### L IPID, TSH, CMP #### [facility] [address] [address] [address] Pauly Garner AST [Catalytic activity/Vol] 15 U/L Normal 14-36 [facility] Comment on above: Performed By: #### L IPID, TSH, CMP #### [facility] [address] [place] [address] Dr. Pauly Garner Bilirubin [Mass/Vol] 0.4 mg/dL Normal 0.2-1.3 [facility] Comment on above: Performed By: #### L IPID, TSH, CMP #### [facility] [address] [place] [address] Dr. Pauly Garner Calcium [Mass/Vol] 9.1 mg/dL Normal 8.4-10.2 [facility] Comment on above: Performed By: #### L IPID, TSH, CMP #### [facility] Laboratory [address] [place] [address] Dr. Pauly Garner Chloride [Moles/Vol] 105 mmol/L Normal 98-107 [facility] Comment on above: Performed By: #### L IPID, TSH, CMP #### [facility] Laboratory [address] [place] [address] Dr. Pauly Garner CO2 [Moles/Vol] 28.2 mmol/L Normal 22.0-30.0 [facility] Comment on above: Performed By: #### L IPID, TSH, CMP #### [facility] Laboratory [address] [place] [address] Dr. Pauly Garner Creatinine [Mass/Vol] 0.95 mg/dL Normal 0.52-1.04 [facility] Comment on above: Performed By: #### L IPID, TSH, CMP #### [facility] Laboratory [address] [place] [address] Dr. Pauly Garner EGFR-AF SENEGALESE >60 Normal >=60 [facility] Comment on above: Performed By: #### L IPID, TSH, CMP #### [facility] [address] [place] [address] Dr. Pauly Garner EGFR-NON AF SENEGALESE 57 mL/min/1.73m2 Critically low >=60 [facility] Comment on above: Performed By: #### L IPID, TSH, CMP #### [facility] [address] [address] [address] Pauly Garner Globulin (S) [Mass/Vol] 3.8 g/dL Normal [facility] Comment on above: Performed By: #### L IPID, TSH, CMP #### [facility] [address] [address] [address] Pauly Garner Glucose [Mass/Vol] 110 mg/dL Critically high 74-106 [facility] Comment on above: Performed By: #### L IPID, TSH, CMP #### [facility] [address] [place] [address] Dr. Pauly Garner Potassium [Moles/Vol] 4.0 mmol/L Normal 3.4-5.0 [facility] Comment on above: Performed By: #### L IPID, TSH, CMP #### [facility] [address] [place] [address] Dr. Pauly Garner Protein [Mass/Vol] 7.3 g/dL Normal 6.1-8.2 [facility] Comment on above: Performed By: #### L IPID, TSH, CMP #### [facility] [address] [place] [address] Dr. Pauly Garner Sodium [Moles/Vol] 143 mmol/L Normal 137-145 [facility] Comment on above: Performed By: #### L IPID, TSH, CMP #### [facility] [address] [place] [address] Dr. Pauly Garner Urea nitrogen [Mass/Vol] 17.0 mg/dL Normal 7.0-17.0 [facility] Comment on above: Performed By: #### L IPID, TSH, CMP #### [facility] [address] [place] [address] Dr. Pauly Garner Urea nitrogen/Creatinine [Mass ratio] 17.9 mg/mg Normal [facility] Comment on above: Performed By: #### L IPID, TSH, CMP #### [facility] [address] [place], [place] [address] Dr. Pauly Garner TSHon 12-19-2020 TSH 1.924 uIU/mL Normal 0.470-4.680 [facility] Comment on above: Performed By: #### L IPID, TSH, CMP #### [facility] [address] [address] [address] Pauly Garner TSH RANGE SEE BELOW Normal [facility] Comment on above: Result Comment: <0.3 4 UIU/ml HYPERTHYROID 0.34-5.60 UIU/ml EUTHYROID >5.60 UIU/ml HYPOTHYROID Performed By: #### L IPID, TSH, CMP #### [facility] [address] [address] [address] Pauly Garner Vital Signs Date Time Vital Sign Value Performing Clinician Facility 09-11-2023 14:19-0400 Body height 162.56 cm [facility] 09-11-2023 14:19-0400 Body mass index (BMI) [Ratio] 22.2 kg/m2 [facility] 09-11-2023 14:19-0400 Body temperature 98.2 [degF] [facility] 09-11-2023 14:19-0400 Body weight 58.74 kg [facility] 09-11-2023 14:19-0400 Diastolic blood pressure 72 mm[Hg] [facility] 09-11-2023 14:19-0400 Heart rate 115 /min [facility] 09-11-2023 14:19-0400 SaO2% (BldA) [Mass fraction] 97 % [facility] 09-11-2023 14:19-0400 Systolic blood pressure 128 mm[Hg] [facility] 10-19-2021 15:50-0400 Body height 162.56 cm Diamond Barajas Other [facility] Other 10-19-2021 15:50-0400 Body mass index (BMI) [Ratio] 23.51 kg/m2 Diamond Barajas Other [facility] Other 10-19-2021 15:50-0400 Body temperature 98.6 [degF] Diamond Barajas Other [facility] Other 10-19-2021 15:50-0400 Body weight 62.14 kg Diamond Barajas Other [facility] Other 10-19-2021 15:50-0400 Respiratory rate 22 /min Diamond Barajas Other [facility] Other 10-19-2021 15:50-0400 SaO2% (BldA) [Mass fraction] 96 % Diamond Barajas Other [facility] Other Encounters Encounter Date Encounter Type Care Provider Facility Start: 12-10-2023 End: 12-10-2023 Bamboo flowsheet Ailyn Reynaill CCC-A Work Phone: [facility] Start: 12-10-2023 End: 12-10-2023 Bamboo flowsheet Ailyn Reynaill CCC-A Work Phone: [facility] Start: 12-10-2023 End: 12-16-2023 [facility] Comment on above: Asymmetrical sensori neural hearing loss (Primary Dx); Dizziness Start: 09-30-2023 End: 09-30-2023 ambulatory KATHLEEN JESSICA Not Available Start: 09-11-2023 End: 09-11-2023 ambulatory [facility] Work Phone: Start: 09-11-2023 End: 09-11-2023 Patient encounter procedure [facility] Work Phone: Start: 06-05-2023 End: 06-05-2023 ambulatory SHAIKH KATHE Not Available Start: 01-28-2023 Patient encounter procedure Ailyn Nicko [facility] Work Phone: [facility] Start: 01-28-2023 End: 01-28-2023 ambulatory SHAIKH KATHE Not Available Start: 11-28-2022 End: 11-28-2022 ambulatory Shaikh Kathe Facility:[facility] Start: 11-28-2022 End: 11-28-2022 ambulatory MD Soto Garcia Work Phone: [facility] Work Phone: Start: 11-28-2022 End: 11-28-2022 Patient encounter procedure MD Soto Garcia Work Phone: [facility] Work Phone: Start: 10-19-2021 End: 10-19-2021 ambulatory Diamond Barajas Other [facility] Other Start: 10-19-2021 Office outpatient ne w 20 minutes Diamond Barajas [facility] Start: 09-21-2021 End: 09-22-2021 ambulatory SHAIKH Lynsey ARCHULETA Facility: Start: 12-19-2020 End: 12-20-2020 ambulatory RICHIE FELICIANO Facility: Procedures Date Procedure Procedure Detail Performing Clinician Start: 12-10-2023 AUDITORY FUNCTION TESTS Ailyn Maharaj [facility] Work Phone: Start: 11-28-2022 Plain X-ray of bilat eral hands MD Soto Garcia Work Phone: Plan of Treatment Date Care Activity Detail Author Start: 01-29-2024 Medicare Annual Wellness (AWV) Medicare Annual Wellness (AWV) [facility] Start: 01-29-2024 Pneumococcal Vaccine : 65+ Years (1 of 1 - PCV) Pneumococcal Vaccine: 65+ Years (1 of 1 - PCV) [facility] Comment on above: Postponed from 02/22 (Patient Refused) Start: 01-02-2024 End: 01-02-2024 Patient encounter procedure 01/02/2024 1:00 PM EST Office Visit [facility] [address] [place] [address] Kathleen Jessica NP [address] [place] [address] [facility] Start: 12-10-2023 End: 12-10-2023 Clinical Support 12/10/2023 10:00 AM EDT Clinical Support [facility] [address] [place] [id number] Ailyn Maharaj, [facility] [address] [place] [address] [facility] Comment on above: Arrived Start: 10-13-2023 Influenza vaccination Influenza Vacc ine (#1) [facility] Start: 11-28-2022 Hemolytic complement CH50 level [facility] Start: 11-28-2022 Hepatitis B core antibody measurement [facility] Start: 11-28-2022 [facility] Complement C3 [Mass/volume] in Serum or Plasma [facility] Complement C4 [Mass/volume] in Serum or Plasma [facility] Hepatitis B virus surface Ab [Presence] in Serum [facility] Hepatitis B virus surface Ag [Presence] in Serum or Plasma by Immunoassay [facility] Hepatitis C virus Ig G Ab [Presence] in Serum or Plasma by Immunoassay [facility] Homogenous nuclear A b pattern [Titer] in Serum [facility] Nuclear Ab [Titer] i n Serum [facility] Payers Date Payer Category Payer Self-pay 2021 Private Health Insurance [facility] [employer] [id number] 2021 Private Health Insurance [id number] 2008 Medicare MEDICARE [id number] 5 1959 Medicare [id number] 1959 Private Health Insurance [id number] 1943 Unknown [id number] 1945 Unknown [id number] 1943 Unknown [id number] .[id number] 1943 Unknown [id number] 1943 Unknown [id number] 1943 Unknown [id number] Unknown [id number] Social History Date Type Detail Facility Start: 09-30-2023 Sex Assigned At [employer] Other Start: 1945 Sex Assigned At Female [facility] Start: 06-05-2023 Tobacco smoking status NHIS Never smoked tobacco [facility] Start: 06-05-2023 Tobacco use and exposure Smokeless tobacco non-user [facility] Start: 09-30-2023 Alcoholic beverage intake Lifetime non-drinker (finding) [facility] Start: 09-30-2023 History of Social function [facility] Start: 1945 Sex assigned at Not on file [facility] NEGATED: Highlighted rowStart: NINF History of tobacco use Passive smoker [facility] Telephone encounter Note 12-16-2023 Telephone Encounter - RACHAEL Blanton - 12/16/2023 9:41 AM EST Note Date & Type Note Facility 12-16-2023 Telephone encounter Note Called pt and reviewed Dr Llanes's recommendation. No ENT follow up needed [facility] Work Phone: Note 12-16-2023 Telephone Encounter - RACHAEL Blanton - 12/16/2023 9:41 AM ESTTelephone Encounter - Luis Carlos Llanes DO - 12/10/2023 3:24 PM EDT Note Date & Type Note Facility 12-16-2023 Miscellaneous Notes Formattin g of this note might be different from the original. Called pt and reviewed Dr Llanes's recommendation. No ENT follow up needed Repeat audio 1 year, No Deshaun indicated Pt referred for BPPV bilateral and acute OM bilateral.. Audio completed today and can be reviewed in the PROCEDURE TAB under the main CHART REVIEW TAB. Please review and determine if further follow up is indicated. If you want deshaun pt needs to see PT. She can barely move from supine to sit because of back issues. Thanks Mine documented in this encounter [facility] Telephone encounter Note 12-10-2023 Telephone Encounter - Luis Carlos Llanes DO - 12/10/2023 3:24 PM EDT Note Date & Type Note Facility 12-10-2023 Telephone encounter Note Repeat audio 1 year, No Deshaun indicated [facility] Work Phone: Telephone encounter Note 12-10-2023 Telephone Encounter - RACHAEL Blanton - 12/10/2023 11:00 AM EDT Note Date & Type Note Facility 12-10-2023 Telephone encount er Note Pt referred for BPPV bilateral and acute OM bilateral.. Audio completed today and can be reviewed in the PROCEDURE TAB under the main CHART REVIEW TAB. Please review and determine if further follow up is indicated. If you want deshaun pt needs to see PT. She can barely move from supine to sit because of back issues. Thanks Mnie [facility] History of Present illness Narrative 12-10-2023 RACHAEL Blanton - 12/10/2023 10:00 AM EDT Note Date & Type Note Facility 12-10-2023 History of Presen t illness Narrative History: Pt was referred to Dr. Llanes because of acute ROSETTA both ears and BPPV both ears. Per Dr. Llanes, pt was scheduled only for an audiogram. Pt states she gets spinning sensation when she lays on the right side, onset 3 years ago when she moved to [place]. Pt also gets episodes where she feels a wave of stuff that goes through the back of her head and she tends to fall. She periodically gets dizzy when she lays back. Pt states taking an antibiotic eliminates the dizziness. CT scan in August was normal. Pt also states her physician tells her she has fluid behid both ear drums. Pt denies tinnitus and hearing loss. Otoscopic Exam: Right Ear: Cerumen impaction Left Ear: Minimal cerumen Procedure: Cerumen removed from each ear canal under direct otoscopy using a curette without incident. TM intact post cleaning. Pure Tone Audiometry Right Ear: Mild sensorineural hearing loss from 250 Hz - 3K Hz rising to normal hearing loss at 4K Hz. Moderate to severe hearing loss above 4K Hz. Left Ear: Mild sloping to profound sensorineural hearing loss above 500 Hz Speech Audiometry Right SRT = 45 dB and word discrimination score at 65 dBHL (masked) = 100% Left SRT = 45 dB and word discrimination score at 70 dBHL (masked) = 84% Tympanometry Right Ear: Type A tympanogram Left Ear: Type A tympanogram Hallpike: Pt has back issues and had difficulty moving from sit to supine and supine to sit. Head Left: NEGATIVE Head Right: NEGATIVE Impressions: Asymmetrical sensorineural hearing loss Recommendations: Dr. Llanes will review results and make ENT recommendations. documented in this encounter [facility] Evaluation note 10-19-2021 Note Date & Type Note Facility 10-19-2021 Evaluation note Encounter Date Diagnosis Assessment Notes Oct, Contact with and (suspected) exposure to other viral communicable diseases (ICD-10 - Z20.828) Oct, COVID-19 (ICD-10 - U07.1) Discharge Instructions for COVID-19 (Suspected or Confirmed ) material was printed Drink plenty fluids, get plenty of rest. Take Tylenol or ibuprofen as needed for pain. Continue home medications as prescribed. You must quarantine for 5 days after the onset of your symptoms. Follow-up with your family physician if no improvement in 2 to 3 days. [facility] Other Evaluation note Note Date & Type Note Facility Evaluation note [facility] Evaluation note Note Date & Type Note Facility Evaluation note Diagnosis Encounter for Medicare annual wellness exam- Primary Undifferentiated connective tissue disease (CMS/HCC) Unspecified diffuse connective tissue disease Recurrent acute serous otitis media of both ears- Primary Bilateral impacted cerumen Impacted cerumen Recurrent acute serous otitis media of both ears- Primary Vertigo, benign paroxysmal, bilateral Asymmetrical sensorineural hearing loss- Primary Sensorineural hearing loss, asymmetrical Dizziness Dizziness and giddiness documented in this encounter [facility] History general Narrative - Reported Note Date & Type Note Facility History general Narrative - Reported Type Medical History Arthritis [facility] Other Summary Purpose Family History No Family History Records FoundNo Family History Records FoundNo Family History Records Found Advance Directives Advance Directive Response Recorded Date/ Time Advance Directives No November 30, 2022 12:45pm Chief Complaint and Reason for Visit Chief Complaint sinus pressure, ear pain Additional Source Comments INFORMATION SOURCE (unrecogn ized section and content) DATE CREATED AUTHOR 09/23/2021 [facility] DATE CREATED AUTHOR AUTHOR'S ORGANIZ ATION 12/07/2022 [facility] DATE CREATED AUTHOR AUTHOR'S ORGANIZ ATION 12/11/2023 [facility] EPIC REASON FOR VISIT (unrecogniz ed section and content) FEVER, SINUS CONGESTION, SOR E THROAT Care Teams (unrecognized sec tion and content) Team Status: Inactive Member Role Status Dates Soto Garcia MD Attending Provider Active Team Status: Active Member Role Status Dates Shaikh Kathe MD Primary Care Provider Active Team Status: Inactive Member Role Status Dates Shaikh Kathe MD Primary Care Provider Active Start: September 11, 2023 End: September 11, 2023 Darline Mckeon APRN Attending Provider Active S tart: September 11, 2023 End: September 11, 2023 Tax Manager Cpa Relationship Specialty Start Date End Date Issa Diop MD [address] [place] [address] PCP - General Family Medicine 09/24/23 Kathleen Jessica NP [address] [place] [address] Nurse Practitioner Family Medicine 09/24/23 Tax Manager Cpa Relationship Specialty Start Date End Date Issa Diop MD [address] [place] [address] PCP - General Family Medicine 09/24/23 Kathleen Jessica NP [address] [place] [phone] Nurse Practitioner [facility] 09/24/23 Tax Manager Cpa Relationship Specialty Start Date End Date Issa Diop MD [address] [place] [phone] PCP - General Family [facility] 09/24/23 Kathleen Jessica NP [address] [place] [id number] Nurse Practitioner Family [facility] 09/24/23 Goals (unrecognized section and content) Goals may be documented in a n alternate section FOR RECORDS PERTAINING TO PATIENTS WHO ARE OR HAVE BEEN ENROLLED IN A CHEMICAL DEPENDENCY/SUBSTANCEABUSE PROGRAM, SOME INFORMATION MAY BE OMITTED. This clinical summary was aggregated from multiple sources. Caution should be exercised in using it in the provision of clinical care. This summary normalizes information from multiple sources, and as a consequence, information in this document may materially change the coding, format and clinical context of patient data. In addition, data may be omitted in some cases. CLINICAL DECISIONS SHOULD BE BASED ON THE PRIMARY CLINICAL RECORDS. [facility] [employer] provides no warranty or guarantee of the accuracy or completeness of information in this document.
[2024-01-08 16:10] LABS: Albumin, U 43.4 % (.); Alpha-1-Globulin, U 9.9 % (.); Alpha-2-Globulin, U 17.3 % (.); Beta Globulin, U 16.5 % (.); Gamma Globulin, U 12.8 % (.); M-Spike, % Not Observed % (Not Observed); Protein,Total,Urine 6.5 mg/dL (Not Estab.)
== END 2024-01-06 13:37 | disposition home or self-care (01) ==
LOC: LAB 13:36
PROVIDERS: Visit Provider Internal Medicine Rheumatology
DX: R70.0 Elevated erythrocyte sedimentation rate (principal); R76.0 Raised antibody titer
CPT/HCPCS: 84156; 84166; 86335

== ENCOUNTER 2024-03-13 13:11 | Outpatient (OUT) | payer MEDICARE, OTHER, SELFPAY ==
--- OUTSIDE RECORDS SUMMARY | 2024-03-13 13:27 | XMS_ITS | CCD ---
Author Organization [facility] Inform ion Partnership [facility] Care Team Providers Care Printer Slotter Operator Name Role Phone RICHIE FELICIANO Attending Unavailable RICHIE FELICIANO Admitting Unavailable RICHIE FELICIANO Consulting Unavailable SHAIKH Lynsey ARCHULETA Admitting Unavailable SHAIKH Lynsey ARCHULETA Primary Care Unavailable SHAIKH Lynsey ARCHULETA Consulting Unavailable SHAIKH Lynsey ARCHULETA Attending Unavailable Diamond Barajas Unavailable MD Soto Garcia Attending Provider [phone] Shaikh Archuleta Primary Care Unavailable Soto Garcia Attending Unavailable Soto Garcia Admitting Unavailable Issa Diop MD Primary Care Provider Kathleen Jessica NP Unavailable [phone] SHAIKH ARCHULETA Attending Unavailable KATHLEEN JESSICA Attending UnavailAILYN Augustine Attending Unavailable SHAIKH ARCHULETA Attending Unavailable Medications Current Medications Medication Drug Class(es) Dates Sig (Normalized) Sig (Original) hydroxychloroquine sulfate 200 mg oral tablet (6 sources) Antimalarial, Antirheumatic Agent Start: Hydroxychloroquine Active MG PO September 11, 2023 12:00am Start: 01-08-2023 take 1 tablet by wero th in the morning hydroxychloroquine (Plaquenil) 200 MG tablet Take 200 mg by mouth in the morning. 01/08/2023 Active ibuprofen 200 mg oral tablet (7 sources) Nonsteroidal Anti-inflammatory Drug Start: 09-11-2023 take 1 tablet by mouth twice daily Ibuprofen (Advil) 200 mg tablet Active 200 MG PO Twice daily September 11, 2023 12:00am take 1 tablet by mouth once ja y ibuprofen 200 MG tablet Take 200 mg by mouth 1 (one) time each day Active Advil Active meclizine hydrochloride 12.5 mg oral tablet (5 sources) Antiemetic Start: 04-30-2022 meclizine (Ant ivert) 12.5 MG tablet TAKE 1 TABLET BY MOUTH 2 TO 3 TIMES A DAY IF NEEDED FOR DIZZINESS 04/30/2022 Active Problems Active Problems Problem Classification Problem Date Documented Date Episodic/Chronic Administrative/socia l admission (1 source) Persons encountering health services in other specified circumstances; Translations: [PERS [facility] OTH CIRCUMSTANCE] Onset: 09-22-2021 Episodic Conditions associated with dizziness or vertigo (8 sources) Peripheral vertigo; Translations: [Benign paroxysmal vertigo, [...] diseases] Onset: 10-19-2021 Resolved: 10-19-2021 Episodic Osteoarthritis (5 sources) Chronic arthritis; Translations: [Unspecified osteoarthritis, unspecified [...] Onset: 12-19-2020 Episodic Other upper respiratory disease (5 sources) Seasonal allergy; Translations: [Other seasonal allergic rhinitis] Onset: 01-28-2023 01-28-2023 Chronic Systemic lupus erythematosus and connective tissue disorders (5 sources) Undifferentiated connective tissue disease; Translations: [Systemic involvement of connective tissue, unspecified] Onset: 01-28-2023 01-28-2023 Chronic Past or Other Problems Problem Classification Problem Date Documented Da te Episodic/Chronic Mood disorders (5 sources) Mood disorders Onset: 01-28-2023 01-28-2023 Other ear and sense organ disorders (5 sources) Impacted cerumen of bilateral ears; Translations: [Impacted cerumen, bilateral] Onset: 06-05-2023 06-05-2023 Episodic Otitis media and related conditions (7 sources) Bilateral recurrent acute serous otitis media [...] Antinuclear Abs, IFA Positive Critically abnormal . [facility] Comment on above: Result Comment: Nega tive <1:80 Borderline 1:80 Positive >1:80 Performed By: #### C BC, ESR, CRP, CMP #### [facility] [address] [place] [address] [place] #### CH50, C4, C3, LUCY #### [facility] , Homogeneous Pattern 1:80 Normal . [facility] Comment on above: Result Comment: ICAP nomenclature: [id number] Performed By: #### C BC, ESR, CRP, CMP #### [address] #### CH50, C4, C3, LUCY #### [facility] , Note 1 Normal . [facility] Comment on above: Result Comment: Donya limon Potential Disease Association Homogeneous Systemic Lupus Erythematosus, Drug Induced Systemic Lupus Erythematosus, Chronic Autoimmune hepatitis, Juvenile Idiopathic Arthritis Speckled Sjogren Syndrome, Systemic Lupus Erythematosus, Subacute Cutaneous Lupus, Lupus, Congenital Heart Block, Mixed Connective Tissue Disease, Scleroderma-diffuse, Scleroderma-Autoimmune Myositis Overlap Syndrome, Systemic Lupus Ophtemcaxklnv-Yqzlbwffxia-Dmdicyojmx Myositis Overlap Syndrome, Systemic Autoimmune Rheumatic Disease, [...] Cytopenias, Linear Scleroderma, Antiphospholipid Syndrome Performed at: [facility] [address] [id number] Plater Apprentice: Saurabh Tobin PhD, Phone: [phone] Performed By: #### C BC, ESR, CRP, CMP #### [facility] [address] [place] [address] [place] #### CH50, C4, C3, LUCY #### [facility] , Speckled Pattern 1:640 High . [facility] Comment on above: Result Comment: ICAP nomenclature: [id number] Performed By: #### C BC, ESR, CRP, CMP #### [facility] [address] [place] [address] [place] #### CH50, C4, C3, LUCY #### [facility] , Alanine aminotransferase [En zymatic activity/volume] in Serum or PlasmaOrdered By: Soto Garcia on 11-28-2022 ALT [Catalytic activity/Vol] 10 U/L 7-52 [facility] Albumin [Mass/volume] in Ser um or Plasma by Bromocresol green (BCG) dye binding methoOrdered By: Soto Garcia on 11-28-2022 Albumin BCG dye [Mass/Vol] 4.0 g/dL 3.5-5.7 [facility] Alkaline phosphatase [Enzyma tic activity/volume] in Serum or PlasmaOrdered By: Soto Garcia on 11-28-2022 ALP [Catalytic activity/Vol] 104 U/L 34-104 [facility] Aspartate aminotransferase [ Enzymatic activity/volume] in Serum or PlasmaOrdered By: Soto Garcia on 11-28-2022 AST [Catalytic activity/Vol] 12 U/L 13-39 [facility] Basophils Auto (Bld) [#/Vol] Ordered By: Soto Garcia on 11-28-2022 Basophils (Bld) [#/Vol] 0.1 10*3/uL 0.0-0.2 [facility] Basophils/100 WBC Auto (Bld) Ordered By: Soto Garcia on 11-28-2022 Basophils/100 WBC (Bld) 1.2 % . [facility] Bilirubin.total [Mass/volume ] in Serum or PlasmaOrdered By: Soto Garcia on 11-28-2022 Bilirubin [Mass/Vol] 0.3 mg/dL 0.3-1.0 [facility] C reactive protein [Mass/vol ume] in Serum or PlasmaOrdered By: Soto Garcia on 11-28-2022 CRP [Mass/Vol] 2.8 mg/dL 0.0-0.5 [facility] C-Reactive Proteinon 023 C-Reactive Protein 2.8 mg/dL High 0.0-0.[address] [facility] Comment on above: Result Comment: PERF ORMED BY: [place] [address] PATHOLOGIST FIRE COORDINATOR MILLICENT OCONNOR M.D. Performed By: #### C BC, ESR, CRP, CMP #### [address] #### CH50, C4, C3, LUCY #### [facility] , Calcium [Mass/volume] in Ser um or PlasmaOrdered By: Soto Garcia on 11-28-2022 Calcium [Mass/Vol] 9.2 mg/dL 8.6-10.[address] [facility] Carbon dioxide, total [Moles /volume] in Serum or PlasmaOrdered By: Soto Garcia on 11-28-2022 CO2 [Moles/Vol] 24.0 mmol/L 21.0-31.0 [facility] Chloride [Moles/volume] in S stephanie or PlasmaOrdered By: Soto Garcia on 11-28-2022 Chloride [Moles/Vol] 107 mmol/L 98-107 [facility] Complement C3on 11-28-2022 Complement C3 159 mg/dL Normal 82-167 [facility] Comment on above: Result Comment: Perf ormed at: - [facility] [id number] Plater Apprentice: Saurabh Tobin PhD, Phone: [phone] Performed By: #### C BC, ESR, CRP, CMP #### [address] #### CH50, C4, C3, LUCY #### [facility] , Complement C4on 11-28-2022 Complement C4 42 mg/dL High 12-38 [facility] Comment on above: Result Comment: PERF ORMED BY: [place] [address] PATHOLOGIST FIRE COORDINATOR MILLICENT OCONNOR M.D. Performed By: #### C BC, ESR, CRP, CMP #### [facility] [address] [place] [address] #### CH50, C4, C3, LUCY #### [facility] , Complement Total (CH50)on Complement Total (CH50) >60 Normal >41 [facility] Comment on above: Result Comment: Age Male [...] determine out of range values. Performed at: [facility] [id number] Plater Apprentice: Saurabh Tobin PhD, Phone: [phone] PERFORMED BY: [place] [address] PATHOLOGIST FIRE COORDINATOR MILLICENT OCONNOR M.D. Performed By: #### C BC, ESR, CRP, CMP #### [address] #### CH50, C4, C3, LUCY #### [facility] , Complete Blood Count Auto Di ffon 11-28-2022 Basophils (Bld) [#/Vol] 0.1 10*3/uL Normal 0.0-0.2 [facility] Comment on above: Performed By: #### C BC, ESR, CRP, CMP #### [address] #### CH50, C4, C3, LUCY #### [facility] , Basophils/100 WBC (Bld) 1.2 % Normal . [facility] Comment on above: Performed By: #### C BC, ESR, CRP, CMP #### [address] #### CH50, C4, C3, LUCY #### [facility] , Eosinophils (Bld) [#/Vol] 0.3 10*3/uL Normal 0.0-0.45 [facility] Comment on above: Performed By: #### C BC, ESR, CRP, CMP #### [address] #### CH50, C4, C3, LUCY #### [facility] , Eosinophils/100 WBC (Bld) 4.1 % Normal . [facility] Comment on above: Performed By: #### C BC, ESR, CRP, CMP #### [place] [address] [place] #### CH50, C4, C3, LUCY #### [facility] , Erythrocyte distribution width (RBC) [Ratio] 13.6 % Normal 11.9-15.3 [facility] Comment on above: Performed By: #### C BC, ESR, CRP, CMP #### [place] [address] [place] #### CH50, C4, C3, LUCY #### [facility] , Hematocrit (Bld) [Volume fraction] 39.1 % Normal 34.0-46.4 [facility] Comment on above: Performed By: #### C BC, ESR, CRP, CMP #### [place] [address] [place] #### CH50, C4, C3, LUCY #### [facility] , Hemoglobin (Bld) [Mass/Vol] 13.1 g/dL Normal 11.8-15.4 [facility] Comment on above: Performed By: #### C BC, ESR, CRP, CMP #### [address] #### CH50, C4, C3, LUCY #### [facility] , Lymphocytes (Bld) [#/Vol] 1.9 10*3/uL Normal 1.00-4.8 [facility] Comment on above: Performed By: #### C BC, ESR, CRP, CMP #### [address] #### CH50, C4, C3, LUCY #### [facility] , Lymphocytes/100 WBC (Bld) 25.2 % Normal . [facility] Comment on above: Performed By: #### C BC, ESR, CRP, CMP #### [place] [address] [place] #### CH50, C4, C3, LUCY #### [facility] , MCH (RBC) [Entitic mass] 28.6 pg Normal 24.7-34.3 [facility] Comment on above: Performed By: #### C BC, ESR, CRP, CMP #### [place] [address] [place] #### CH50, C4, C3, LUCY #### [facility] , MCV (RBC) [Entitic vol] 85.4 fL Normal 80-100 [facility] Comment on above: Performed By: #### C BC, ESR, CRP, CMP #### [place] [address] [place] #### CH50, C4, C3, LUCY #### [facility] , Mean Corpuscular HGB Conc 33.5 g/dL Normal 32.0-35.0 [facility] Comment on above: Performed By: #### C BC, ESR, CRP, CMP #### [place] [address] [place] #### CH50, C4, C3, LUCY #### [facility] , Monocytes (Bld) [#/Vol] 0.5 10*3/uL Normal 0.0-0.8 [facility] Comment on above: Performed By: #### C BC, ESR, CRP, CMP #### [place] [address] [place] #### CH50, C4, C3, LUCY #### [facility] , Monocytes/100 WBC (Bld) 7.4 % Normal . [facility] Comment on above: Performed By: #### C BC, ESR, CRP, CMP #### [place] [address] [place] #### CH50, C4, C3, LUCY #### [facility] , Neutrophils (Bld) [#/Vol] 4.6 10*3/uL Normal 1.8-7.7 [facility] Comment on above: Performed By: #### C BC, ESR, CRP, CMP #### [place] [address] [place] #### CH50, C4, C3, LUCY #### [facility] , Neutrophils/100 WBC (Bld) 62.1 % Normal . [facility] Comment on above: Performed By: #### C BC, ESR, CRP, CMP #### [place] [address] [place] #### CH50, C4, C3, LUCY #### [facility] , NRBC% 0.1 /100{WBC} Normal 0-0.5 [facility] Comment on above: Performed By: #### C BC, ESR, CRP, CMP #### [address] #### CH50, C4, C3, LUCY #### [facility] , Platelet mean volume (Bld) [Entitic vol] 8.4 fL Normal 6.3-10.7 [facility] Comment on above: Performed By: #### C BC, ESR, CRP, CMP #### [place] [address] [place] #### CH50, C4, C3, LUCY #### [facility] , Platelets (Bld) [#/Vol] 218 10*3/uL Normal 150-450 [facility] Comment on above: Performed By: #### C BC, ESR, CRP, CMP #### [address] #### CH50, C4, C3, LUCY #### [facility] , RBC (Bld) [#/Vol] 4.58 10*6/uL Normal 3.60-5.00 [facility] Comment on above: Performed By: #### C BC, ESR, CRP, CMP #### [place] [address] [place] #### CH50, C4, C3, LUCY #### [facility] , WBC (Bld) [#/Vol] 7.4 10*3/uL Normal 3.8-11.[address] [facility] Comment on above: Performed By: #### C BC, ESR, CRP, CMP #### [place] [address] [place] #### CH50, C4, C3, LUCY #### [facility] , Comprehensive Metabolic Pane bryan 11-28-2022 Albumin [Mass/Vol] 4.0 g/dL Normal 3.5-5.[address] [facility] Comment on above: Performed By: #### C BC, ESR, CRP, CMP #### [place] [address] [place] #### CH50, C4, C3, LUCY #### [facility] , Albumin/Globulin [Mass ratio] 1.5 {ratio} Normal [facility] Comment on above: Performed By: #### C BC, ESR, CRP, CMP #### [address] #### CH50, C4, C3, LUCY #### [facility] , ALP [Catalytic activity/Vol] 104 U/L Normal 34-104 [facility] Comment on above: Performed By: #### C BC, ESR, CRP, CMP #### [place] [address] [place] #### CH50, C4, C3, LUCY #### [facility] , ALT [Catalytic activity/Vol] 10 U/L Normal 7-52 [facility] Comment on above: Performed By: #### C BC, ESR, CRP, CMP #### [place] [address] [place] #### CH50, C4, C3, LUCY #### [facility] , Anion gap [Moles/Vol] 13.4 mmol/L Normal 6.0-15.0 [facility] Comment on above: Performed By: #### C BC, ESR, CRP, CMP #### [place] [address] [place] #### CH50, C4, C3, LUCY #### [facility] , AST [Catalytic activity/Vol] 12 U/L Low 13-39 [facility] Comment on above: Performed By: #### C BC, ESR, CRP, CMP #### [facility] [address] [place] [address] #### CH50, C4, C3, LUCY #### [facility] , Bilirubin [Mass/Vol] 0.3 mg/dL Normal 0.3-1.0 [facility] Comment on above: Performed By: #### C BC, ESR, CRP, CMP #### [facility] [address] [place] [address] #### CH50, C4, C3, LUCY #### [facility] , Calcium [Mass/Vol] 9.2 mg/dL Normal 8.6-10.[address] [facility] Comment on above: Performed By: #### C BC, ESR, CRP, CMP #### [facility] [address] [place] [address] [place] #### CH50, C4, C3, LUCY #### [facility] , Chloride [Moles/Vol] 107 mmol/L Normal 98-107 [facility] Comment on above: Performed By: #### C BC, ESR, CRP, CMP #### [address] #### CH50, C4, C3, LUCY #### [facility] , CO2 [Moles/Vol] 24.0 mmol/L Normal 21.0-31.0 [facility] Comment on above: Performed By: #### C BC, ESR, CRP, CMP #### [facility] [address] [place] [address] [place] #### CH50, C4, C3, LUCY #### [facility] , Creatinine [Mass/Vol] 0.90 mg/dL Normal 0.60-1.20 [facility] Comment on above: Performed By: #### C BC, ESR, CRP, CMP #### [place] [address] [place] #### CH50, C4, C3, LUCY #### [facility] , GFR/1.73 sq M.predicted MDRD (S/P/Bld) [Vol rate/Area] mL/min/{1.73_m2} Normal [facility] Comment on above: Performed By: #### C BC, ESR, CRP, CMP #### [place] [address] [place] #### CH50, C4, C3, LCUY #### [facility] , Globulin (S) [Mass/Vol] 2.7 g/dL Normal [facility] Comment on above: Performed By: #### C BC, ESR, CRP, CMP #### [place] [address] [place] #### CH50, C4, C3, LUCY #### [facility] , Glucose [Mass/Vol] 94 mg/dL Normal 70-[address] [facility] Comment on above: Result Comment: [facility] Glucose Reference Range is dependent on time and content of last meal. Glucose of more than 200 mg/dL in a nonstressed, ambulatory subject supports the diagnosis of Diabetes Mellitus. ADA recommended reference range Performed By: #### C BC, ESR, CRP, CMP #### [place] [address] [place] #### CH50, C4, C3, LUCY #### [facility] , Potassium [Moles/Vol] 4.4 mmol/L Normal 3.5-5.1 [facility] Comment on above: Performed By: #### C BC, ESR, CRP, CMP #### [place] [address] [place] #### CH50, C4, C3, LUCY #### [facility] , Protein [Mass/Vol] 6.7 g/dL Normal 6.4-8.[address] [facility] Comment on above: Performed By: #### C BC, ESR, CRP, CMP #### [facility] [address] [place] [address] [place] #### CH50, C4, C3, LUCY #### [facility] , Sodium [Moles/Vol] 140 mmol/L Normal 136-[address] [facility] Comment on above: Performed By: #### C BC, ESR, CRP, CMP #### [facility] [address] [place] [address] [place] #### CH50, C4, C3, LUCY #### [facility] , Urea nitrogen [Mass/Vol] 17 mg/dL Normal 7-25 [facility] Comment on above: Performed By: #### C BC, ESR, CRP, CMP #### [place] [address] [place] #### CH50, C4, C3, LUCY #### [facility] , Creatinine [Mass/volume] in Serum or PlasmaOrdered By: Soto Garcia on 11-28-2022 Creatinine [Mass/Vol] 0.90 mg/dL 0.60-1.20 [facility] Eosinophils Auto (Bld) [#/Vo l]Ordered By: Soto Garcia on 11-28-2022 Eosinophils (Bld) [#/Vol] 0.3 10*3/uL 0.0-0.45 [facility] Eosinophils/100 WBC Auto (Bl d)Ordered By: Soto Garcia on 11-28-2022 Eosinophils/100 WBC (Bld) 4.1 % . [facility] Erythrocyte Sedimentation Ra steph 11-28-2022 ESR (Bld) [Velocity] 42 mm/h High 0-29 [facility] Comment on above: Result Comment: PERF ORMED BY: [place] [address] PATHOLOGIST FIRE COORDINATOR MILLICENT OCONNOR M.D. Performed By: #### C BC, ESR, CRP, CMP #### [facility] [address] [place] [address] [place] #### CH50, C4, C3, LUCY #### [facility] , Erythrocyte distribution wid th Auto (RBC) [Ratio]Ordered By: Soto Garcia on 11-28-2022 Erythrocyte distribution width (RBC) [Ratio] 13.6 % 11.9-15.3 [facility] Erythrocyte sedimentation ra te by Photometric methodOrdered By: Soto Garcia on 11-28-2022 ESR Photometric method (Bld) [Velocity] 42 mm/hr 0-29 [facility] Globulin Calc (S) [Mass/Vol] Ordered By: Soto Garcia on 11-28-2022 Globulin (S) [Mass/Vol] 2.7 g/dL [facility] Glucose [Mass/volume] in Ser um or PlasmaOrdered By: Soto Garcia on 11-28-2022 Glucose [Mass/Vol] 94 mg/dL 70-[address] [facility] Comment on above: ADA recommended refe rence rangeRandom Glucose Reference Range is dependent on time and content of last meal. Glucose of more than 200 mg/dL in a nonstressed, ambulatory subject supports the diagnosis of Diabetes Mellitus. Hematocrit Auto (Bld) [Volum e fraction]Ordered By: Soto Garcia on 11-28-2022 Hematocrit (Bld) [Volume fraction] 39.1 % 34.0-46.4 [facility] Hemoglobin [Mass/volume] in BloodOrdered By: Soto Garcia on 11-28-2022 Hemoglobin (Bld) [Mass/Vol] 13.1 g/dL 11.8-15.4 [facility] Hep C Ab wRfx to Qnt PCRon 1 Hepatitis C Virus Antibody Non-Reactive Normal Non Reactive [facility] Comment on above: Performed By: #### H BSAB, HCV RX PCR, HBCAB, HBSAG #### [facility] , Interpretation Hepatitis C Normal . [facility] Comment on above: Result Comment: Not infected with HCV unless early or acute infection is suspected (which may be delayed in an immunocompromised individual), or other evidence exists to indicate HCV infection. Performed By: #### H BSAB, HCV RX PCR, HBCAB, HBSAG #### [facility] , Hepatitis B Core Antibodyon 11-28-2022 Hepatitis B Core Antibody Negative Normal Negative [facility] Comment on above: Result Comment: Perf ormed at: - [facility] [address] [id number] Plater Apprentice: Saurabh Tobin PhD, Phone: [phone] Performed By: #### C BC, ESR, CRP, CMP #### [facility] [address] [place] [address] #### CH50, C4, C3, LUCY #### [facility] , Hepatitis B Surface Antibody on 11-28-2022 Hepatitis B Surface Antibody Non-Reactive Normal . [facility] Comment on above: Result Comment: Non Reactive: Inconsistent with immunity, less than 10 mIU/mL Reactive: Consistent with immunity, greater than 9.9 mIU/mL Performed By: #### H BSAB, HCV RX PCR, HBCAB, HBSAG #### [facility] , Hepatitis B Surface Antigeno n 11-28-2022 HBsAg Screen Negative Normal Negative [facility] Comment on above: Result Comment: PERF ORMED BY: [place] [address] PATHOLOGIST FIRE COORDINATOR MILLICENT OCONNOR M.D. Performed By: #### C BC, ESR, CRP, CMP #### [facility] [address] [place] [address] #### CH50, C4, C3, LUCY #### [facility] , Leukocytes [#/volume] correc lauren for nucleated erythrocytes in Blood by Automated counOrdered By: Soto Garcia on 11-28-2022 WBC corrected for nucl RBC Auto (Bld) [#/Vol] 7.4 10*3/uL 3.8-11.6 [facility] Lymphocytes Auto (Bld) [#/Vo l]Ordered By: Soto Garcia on 11-28-2022 Lymphocytes (Bld) [#/Vol] 1.9 10*3/uL 1.00-4.8 [facility] Lymphocytes/100 WBC Auto (Bl d)Ordered By: Soto Garcia on 11-28-2022 Lymphocytes/100 WBC (Bld) 25.2 % . [facility] MCH Auto (RBC) [Entitic mass ]Ordered By: Soto Garcia on 11-28-2022 MCH (RBC) [Entitic mass] 28.6 pg 24.7-34.3 [facility] MCHC Auto (RBC) [Mass/Vol]Or dered By: Soto Garcia on 11-28-2022 MCHC (RBC) [Mass/Vol] 33.5 g/dL 32.0-35.0 [facility] MCV Auto (RBC) [Entitic vol] Ordered By: Soto Garcia on 11-28-2022 MCV (RBC) [Entitic vol] 85.4 fL 80-100 [facility] Monocytes Auto (Bld) [#/Vol] Ordered By: Soto Garcia on 11-28-2022 Monocytes (Bld) [#/Vol] 0.5 10*3/uL 0.0-0.8 [facility] Monocytes/100 WBC Auto (Bld) Ordered By: Soto Garcia on 11-28-2022 Monocytes/100 WBC (Bld) 7.4 % . [facility] Neutrophils Auto (Bld) [#/Vo l]Ordered By: Soto Garcia on 11-28-2022 Neutrophils (Bld) [#/Vol] 4.6 10*3/uL 1.8-7.7 [facility] Neutrophils/100 WBC Auto (Bl d)Ordered By: Soto Garcia on 11-28-2022 Neutrophils/100 WBC (Bld) 62.1 % . [facility] No Panel InformationOrdered By: Soto Garcia on 11-28-2022 Estimated GFR (CKD-EPI) > 60.0 mL/Min [facility] Creatinine Clearance (Chem N/A [facility] Nucleated erythrocytes [Pres ence] in Blood by Automated countOrdered By: Soto Garcia on 11-28-2022 Nucleated RBC Auto Ql (Bld) 0.1 /100{WBC} 0-0.5 [facility] Platelet mean volume Auto (B ld) [Entitic vol]Ordered By: Soto Garcia on 11-28-2022 Platelet mean volume (Bld) [Entitic vol] 8.4 fL 6.3-10.7 [facility] Platelets Auto (Bld) [#/Vol] Ordered By: Soto Garcia on 11-28-2022 Platelets (Bld) [#/Vol] 218 10*3/uL 150-450 [facility] Potassium [Moles/volume] in Serum or PlasmaOrdered By: Soto Garcia on 11-28-2022 Potassium [Moles/Vol] 4.4 mmol/L 3.5-5.1 [facility] Protein [Mass/volume] in Ser um or PlasmaOrdered By: Soto Garcia on 11-28-2022 Protein [Mass/Vol] 6.7 g/dL 6.4-8.[address] [facility] RBC Auto (Bld) [#/Vol]Ordere d By: Soto Garcia on 11-28-2022 RBC (Bld) [#/Vol] 4.58 10*6/uL 3.60-5.00 [facility] Serum or plasma albumin/glob ulin mass ratioOrdered By: Soto Garcia on 11-28-2022 Albumin/Globulin [Mass ratio] 1.5 {ratio} [facility] Serum or plasma anion gap de terminationOrdered By: Soto Garcia on 11-28-2022 Anion gap [Moles/Vol] 13.4 mmol/L 6.0-15.0 [facility] Sodium [Moles/volume] in Ser um or PlasmaOrdered By: Soto Garcia on 11-28-2022 Sodium [Moles/Vol] 140 mmol/L 136-[address] [facility] Urea nitrogen [Mass/volume] in Serum or PlasmaOrdered By: Soto Garcia on 11-28-2022 Urea nitrogen [Mass/Vol] 17 mg/dL 7-25 [facility] WBC Auto (Bld) [#/Vol]Ordere d By: Soto Garcia on 11-28-2022 WBC (Bld) [#/Vol] 7.4 10*3/uL 3.8-11.[address] [facility] XR hand BI 2Von 11-28-2022 XR hand BI 2V [facility] [address] [place] [address] XRay Report Signed Patient: Do Girard I MR#: [id number] : 1945 Acct:[id number] Age/Sex: 77 / F ADM Date: 11/28/22 Loc: ICXD Room: Type: [facility] Attending Dr: Soto Garcia MD Copies [...] Kavin Israel M.D.11/28/2022 5:28 PM Dictation Location: [place] [address] Transcribed By: [facility] 11/28/221727 Dictated By: Kavin Israel II, MD 11/28/221726 Signed By: 11/28/221727 Normal [facility] COVID Quick Testingon 2021 Result Positive [employer] Other CBC AUTO DIFFon 09-21-2021 BASO # 0.1 103/ul Normal 0.0-0.1 [facility] Comment on above: Performed By: #### C BC #### [facility] [address] [place] [address] Dr. Pauly Garner Basophils/100 WBC (Bld) 0.9 % Normal 0.2-2.0 [facility] Comment on above: Performed By: #### C BC #### [facility] [address] [place] [address] Dr. Pauly Garner EO # 0.2 103/ul Normal 0.0-0.7 [facility] Comment on above: Performed By: #### C BC #### [facility] [address] [place] [address] Dr. Pauly Garner Eosinophils/100 WBC (Bld) 2.9 % Normal 0.9-7.0 [facility] Comment on above: Performed By: #### C BC #### [facility] [address] [place] [address] Dr. Pauly Garner Erythrocyte distribution width (RBC) [Ratio] 13.1 % Normal 11.0-15.0 [facility] Comment on above: Performed By: #### C BC #### [facility] [address] [place] [address] Dr. Pauly Garner Hematocrit (Bld) [Volume fraction] 44.4 % Normal 36.0-48.0 [facility] Comment on above: Performed By: #### C BC #### [facility] [address] [place] [address] Dr. Pauly Garner Hemoglobin (Bld) [Mass/Vol] 14.3 g/dL Normal 12.0-16.0 [facility] Comment on above: Performed By: #### C BC #### [facility] [address] [place] [address] Dr. Pauly Garner IG # 0.03 10e3/ul Normal 0.00-0.03 [facility] Comment on above: Performed By: #### C BC #### [facility] [address] [place] [address] Dr. Pauly Garner IG % 0.5 % Normal 0.0-0.5 [facility] Comment on above: Performed By: #### C BC #### [facility] [address] [place] [address] Dr. Pauly Garner LYMPH # 1.7 103/ul Normal 1.2-3.8 [facility] Comment on above: Performed By: #### C BC #### [facility] [address] [place] [address] Dr. Pauly Garner Lymphocytes/100 WBC (Bld) 26.7 % Normal 20.5-60.0 [facility] Comment on above: Performed By: #### C BC #### [facility] [address] [place] [address] Dr. Pauly Garner MANUAL DIFF REQ NO Normal [facility] Comment on above: Performed By: #### C BC #### [facility] [address] [place] [address] Dr. Pauly Garner MCH (RBC) [Entitic mass] 28.8 pg Normal 26.7-34.0 [facility] Comment on above: Performed By: #### C BC #### [facility] [address] [place] [address] Dr. Pauly Garner MCHC (RBC) [Mass/Vol] 32.2 g/dL Normal 29.9-35.2 [facility] Comment on above: Performed By: #### C BC #### [facility] [address] [place] [address] Dr. Pauly Garner MCV (RBC) [Entitic vol] 89.5 fL Normal 81.0-99.0 [facility] Comment on above: Performed By: #### C BC #### [facility] [address] [place] [address] Dr. Pauly Garner MONO # 0.5 103/ul Normal 0.3-0.8 [facility] Comment on above: Performed By: #### C BC #### [facility] [address] [place] [address] Dr. Pauly Garner Monocytes/100 WBC (Bld) 6.9 % Normal 1.7-12.0 [facility] Comment on above: Performed By: #### C BC #### [facility] [address] [place] [address] Dr. Pauly Garner NEUT # 4.0 103/ul Normal 1.4-6.5 [facility] Comment on above: Performed By: #### C BC #### [facility] [address] [place] [address] [address] Pauly Garner Neutrophils/100 WBC (Bld) 62.1 % Normal 43.0-75.0 [facility] Comment on above: Performed By: #### C BC #### [facility] [address] [place] [address] [address] Pauly Garner Platelet mean volume (Bld) [Entitic vol] 10.3 fL Normal 9.5-13.5 [facility] Comment on above: Performed By: #### C BC #### [facility] [address] [place] [address] [address] Pauly Garner PLT 201 103/ul Normal 150-450 [facility] Comment on above: Performed By: #### C BC #### [facility] [address] [place] [address] Dr. Pauly Garner RBC 4.96 106/ul Normal 4.20-5.40 [facility] Comment on above: Performed By: #### C BC #### [facility] [address] [place] [address] [address] Pauly Garner WBC 6.5 103/ul Normal 4.0-11.0 [facility] Comment on above: Performed By: #### C BC #### [facility] [address] [place] [address] Dr. Pauly Garner GLYCOHEMOGLOBIN A1Con 2021 ADA RECOMMENDATION SEE BELOW Normal [facility] Comment on above: Result Comment: ADA RECOMMENDED LIMIT 4.0 - 6.0 ADA THERAPEUTIC TARGET < 7.0 ACTION SUGGESTED > 7.0 Performed By: #### A 1C #### [facility] [address] [place] [address] Dr. Pauly Garner Glucose [Mass/Vol] 108 mg/dL Normal [facility] Comment on above: Performed By: #### A 1C #### [facility] [address] [place] [address] Dr. Pauly Garner HbA1c (Bld) [Mass fraction] 5.4 % Normal 4.5-6.2 [facility] Comment on above: Performed By: #### A 1C #### [facility] [address] [place] [address] [address] Pauly Garner LIPID PROFILEon 09-21-2021 CHOL-HDL RATIO NORM SEE BELOW Normal [facility] Comment on above: Result Comment: 3.3 - 4.4 LOW RISK 4.4 - 7.1 AVERAGE RISK 7.1 - 11.0 MODERATE RISK >11.0 HIGH RISK Performed By: #### L IPID, BMP #### [facility] [address] [place] [address] [address] Pauly Garner Cholesterol [Mass/Vol] 235 mg/dL Critically high <=200 [facility] Comment on above: Performed By: #### L IPID, BMP #### [facility] [address] [place] [address] [address] Pauly Garner Cholesterol in HDL [Mass/Vol] 48 mg/dL Normal 40-60 [facility] Comment on above: Performed By: #### L IPID, BMP #### [facility] [address] [place] [address] [address] Pauly Garner Cholesterol in LDL [Mass/Vol] 155.8 mg/dL Normal [facility] Comment on above: Performed By: #### L IPID, BMP #### [facility] [address] [place] [address] [address] Pauly Garner Cholesterol.total/Ginny sterol in HDL [Mass ratio] 4.9 {ratio} Normal [facility] Comment on above: Performed By: #### L IPID, BMP #### [facility] [address] [place] [address] [address] Pauly Garner HDL NORMAL > or = 60 mg/dl - LO W CARDIOVASCULAR RISK <40 mg/dl - HIGH CARDIOVASCULAR RISK Normal [facility] Comment on above: Performed By: #### L IPID, BMP #### [facility] [address] [place] [address] [address] Pauly Garner LDL CALC NORMAL SEE BELOW Normal [facility] Comment on above: Result Comment: <100 mg/dl OPTIMAL 100 - 129 mg/dl NEAR OR ABOVE OPTIMAL 130 - 159 mg/dl BORDERLINE HIGH 160 - 189 mg/dl HIGH >190 mg/dl VERY HIGH Performed By: #### L IPID, BMP #### [facility] [address] [place] [address] Dr. Pauly Garner Triglyceride [Mass/Vol] 156 mg/dL Critically high <=150 [facility] Comment on above: Performed By: #### L IPID, BMP #### [facility] [address] [place] [address] Dr. Pauly Garner VLDL CALC 31.2 mg/dL Normal [facility] Comment on above: Performed By: #### L IPID, BMP #### [facility] [address] [place] [address] Dr. Pauly Garner PROF CHEM 8 (BAS METB)on Anion gap [Moles/Vol] 9.5 mmol/L Normal [facility] Comment on above: Performed By: #### L IPID, BMP #### [facility] [address] [place] [address] Dr. Pauly Garner Calcium [Mass/Vol] 9.4 mg/dL Normal 8.5-10.1 [facility] Comment on above: Performed By: #### L IPID, BMP #### [facility] [address] [place] [address] Dr. Pauly Garner Chloride [Moles/Vol] 104 mmol/L Normal 98-107 [facility] Comment on above: Performed By: #### L IPID, BMP #### [facility] [address] [place] [address] Dr. Pauly Garner CO2 [Moles/Vol] 29.1 mmol/L Normal 21.0-32.0 [facility] Comment on above: Performed By: #### L IPID, BMP #### [facility] [address] [place] [address] Dr. Pauly Garner Creatinine [Mass/Vol] 0.89 mg/dL Normal 0.55-1.02 [facility] Comment on above: Performed By: #### L IPID, BMP #### [facility] [address] [place] [address] [address] Pauly Garner EGFR-AF AFGHAN 60 mL/min/1.73m2 Normal >=60 [facility] Comment on above: Performed By: #### L IPID, BMP #### [facility] [address] [place] [address] Dr. Pauly Garner EGFR-NON AF AFGHAN 60 mL/min/1.73m2 Normal >=60 [facility] Comment on above: Performed By: #### L IPID, BMP #### [facility] [address] [place] [address] Dr. Pauly Garner Glucose [Mass/Vol] 113 mg/dL Critically high 74-106 [facility] Comment on above: Performed By: #### L IPID, BMP #### [facility] [address] [place] [address] Dr. Pauly Garner Potassium [Moles/Vol] 4.6 mmol/L Normal 3.5-5.1 [facility] Comment on above: Performed By: #### L IPID, BMP #### [facility] [address] [place] [address] Dr. Pauly Garner Sodium [Moles/Vol] 138 mmol/L Normal 136-145 [facility] Comment on above: Performed By: #### L IPID, BMP #### [facility] [address] [place] [address] Dr. Pauly Garner Urea nitrogen [Mass/Vol] 18.0 mg/dL Normal 7.0-18.0 [facility] Comment on above: Performed By: #### L IPID, BMP #### [facility] [address] [place] [address] Dr. Pauly Garner Urea nitrogen/Creatinine [Mass ratio] 20.2 mg/mg Normal [facility] Comment on above: Performed By: #### L IPID, BMP #### [facility] [address] [place] [address] Dr. Pauly Garner CBC AUTO DIFFon 12-19-2020 BASO # 0.1 103/ul Normal 0.0-0.1 [facility] Comment on above: Performed By: #### C BC #### [facility] [address] [place] [address] Dr. Pauly Garner Basophils/100 WBC (Bld) 0.9 % Normal 0.2-2.0 [facility] Comment on above: Performed By: #### C BC #### [facility] [address] [place] [address] Dr. Pauly Garner EO # 0.2 103/ul Normal 0.0-0.7 [facility] Comment on above: Performed By: #### C BC #### [facility] [address] [place] [address] Dr. Pauly Garner Eosinophils/100 WBC (Bld) 3.0 % Normal 0.9-7.0 [facility] Comment on above: Performed By: #### C BC #### [facility] [address] [place] [address] Dr. Pauly Garner Erythrocyte distribution width (RBC) [Ratio] 13.1 % Normal 11.0-15.0 [facility] Comment on above: Performed By: #### C BC #### [facility] [address] [place] [address] Dr. Pauly Garner Hematocrit (Bld) [Volume fraction] 44.5 % Normal 36.0-48.0 [facility] Comment on above: Performed By: #### C BC #### [facility] [address] [place] [address] Dr. Pauly Garner Hemoglobin (Bld) [Mass/Vol] 14.4 g/dL Normal 12.0-16.0 [facility] Comment on above: Performed By: #### C BC #### [facility] [address] [place] [address] Dr. Pauly Garner IG # 0.03 10e3/ul Normal 0.00-0.03 [facility] Comment on above: Performed By: #### C BC #### [facility] [address] [place] [address] Dr. Pauly Garner IG % 0.5 % Normal 0.0-0.5 [facility] Comment on above: Performed By: #### C BC #### [facility] [address] [place] [address] [address] Pauly Garner LYMPH # 2.0 103/ul Normal 1.2-3.8 [facility] Comment on above: Performed By: #### C BC #### [facility] [address] [place] [address] Dr. Pauly Garner Lymphocytes/100 WBC (Bld) 31.1 % Normal 20.5-60.0 [facility] Comment on above: Performed By: #### C BC #### [facility] [address] [place] [address] Dr. Pauly Garner MANUAL DIFF REQ NO Normal [facility] Comment on above: Performed By: #### C BC #### [facility] [address] [place] [address] Dr. Pauly Garner MCH (RBC) [Entitic mass] 28.6 pg Normal 26.7-34.0 [facility] Comment on above: Performed By: #### C BC #### [facility] [address] [place] [address] Dr. Pauly Garner MCHC (RBC) [Mass/Vol] 32.4 g/dL Normal 29.9-35.2 [facility] Comment on above: Performed By: #### C BC #### [facility] [address] [place] [address] Dr. Pauly Garner MCV (RBC) [Entitic vol] 88.5 fL Normal 81.0-99.0 [facility] Comment on above: Performed By: #### C BC #### [facility] [address] [place] [address] Dr. Pauly Garner MONO # 0.5 103/ul Normal 0.3-0.8 [facility] Comment on above: Performed By: #### C BC #### [facility] [address] [place] [address] Dr. Pauly Garner Monocytes/100 WBC (Bld) 7.3 % Normal 1.7-12.0 [facility] Comment on above: Performed By: #### C BC #### [facility] [address] [place] [address] [address] Pauly Garner NEUT # 3.8 103/ul Normal 1.4-6.5 [facility] Comment on above: Performed By: #### C BC #### [facility] [address] [place] [address] Dr. Pauly Garner Neutrophils/100 WBC (Bld) 57.2 % Normal 43.0-75.0 [facility] Comment on above: Performed By: #### C BC #### [facility] [address] [place] [address] Dr. Pauly Garner Platelet mean volume (Bld) [Entitic vol] 9.7 fL Normal 9.5-13.5 [facility] Comment on above: Performed By: #### C BC #### [facility] [address] [place] [address] Dr. Pauly Garner PLT 207 103/ul Normal 150-450 [facility] Comment on above: Performed By: #### C BC #### [facility] [address] [place] [address] Dr. Pauly Garner RBC 5.03 106/ul Normal 4.20-5.40 [facility] Comment on above: Performed By: #### C BC #### [facility] [address] [place] [address] Dr. Pauly Garner WBC 6.6 103/ul Normal 4.0-11.0 [facility] Comment on above: Performed By: #### C BC #### [facility] [address] [place] [address] Dr. Pauly Garner GLYCOHEMOGLOBIN A1Con 2020 ADA RECOMMENDATION ADA THERAPEUTIC TARGET 6.0 - 7.0 ACTION SUGGESTED > 7.0 Normal [facility] Comment on above: Performed By: #### A 1C #### [facility] [address] [place] [address] Dr. Pauly Garner Glucose [Mass/Vol] 120 mg/dL Normal [facility] Comment on above: Performed By: #### A 1C #### [facility] [address] [place] [address] Dr. Pauly Garner HbA1c (Bld) [Mass fraction] 5.8 % Normal <=6.0 [facility] Comment on above: Performed By: #### A 1C #### [facility] [address] [address] [address] Pauly Garner LIPID PROFILEon 12-19-2020 CHOL-HDL RATIO NORM SEE BELOW Normal [facility] Comment on above: Result Comment: 3.3 - 4.4 LOW RISK 4.4 - 7.1 AVERAGE RISK 7.1 - 11.0 MODERATE RISK >11.0 HIGH RISK Performed By: #### L IPID, TSH, CMP #### [facility] [address] [address] [address] Pauly Garner Cholesterol [Mass/Vol] 221 mg/dL Critically high <=200 [facility] Comment on above: Performed By: #### L IPID, TSH, CMP #### [facility] [address] [address] [address] Pauly Garner Cholesterol in HDL [Mass/Vol] 54 mg/dL Normal [facility] Comment on above: Performed By: #### L IPID, TSH, CMP #### [facility] [address] [address] [address] Pauly Garner Cholesterol in LDL [Mass/Vol] 141.8 mg/dL Normal [facility] Comment on above: Performed By: #### L IPID, TSH, CMP #### [facility] [address] [address] [address] Pauly Garner Cholesterol.total/Ginny sterol in HDL [Mass ratio] 4.1 {ratio} Normal [facility] Comment on above: Performed By: #### L IPID, TSH, CMP #### [facility] [address] [address] [address] Pauly Garner HDL NORMAL > or = 60 mg/dl - LO W CARDIOVASCULAR RISK <40 mg/dl - HIGH CARDIOVASCULAR RISK Normal [facility] Comment on above: Performed By: #### L IPID, TSH, CMP #### [facility] [address] [address] [address] Pauly Garner LDL CALC NORMAL SEE BELOW Normal [facility] Comment on above: Result Comment: <100 mg/dl OPTIMAL 100 - 129 mg/dl NEAR OR ABOVE OPTIMAL 130 - 159 mg/dl BORDERLINE HIGH 160 - 189 mg/dl HIGH >190 mg/dl VERY HIGH Performed By: #### L IPID, TSH, CMP #### [facility] [address] [address] [address] Pauly Garner Triglyceride [Mass/Vol] 126 mg/dL Normal <=150 [facility] Comment on above: Performed By: #### L IPID, TSH, CMP #### [facility] [address] [address] [address] Pauly Garner VLDL CALC 25.2 mg/dL Normal [facility] Comment on above: Performed By: #### L IPID, TSH, CMP #### [facility] [address] [address] [address] Pauly Garner PROF 14(COMP METB)on 021 Albumin [Mass/Vol] 3.5 g/dL Normal 3.5-5.0 [facility] Comment on above: Performed By: #### L IPID, TSH, CMP #### [facility] [address] [address] [address] Pauly Garner Albumin/Globulin [Mass ratio] 0.9 {ratio} Normal [facility] Comment on above: Performed By: #### L IPID, TSH, CMP #### [facility] [address] [address] [address] Pauly Garner ALP [Catalytic activity/Vol] 122 U/L Normal 38-126 [facility] Comment on above: Performed By: #### L IPID, TSH, CMP #### [facility] [address] [address] [address] Pauly Garner ALT [Catalytic activity/Vol] 17 U/L Normal 9-52 [facility] Comment on above: Performed By: #### L IPID, TSH, CMP #### [facility] [address] [address] [address] Pauly Garner Anion gap [Moles/Vol] 13.8 mmol/L Normal [facility] Comment on above: Performed By: #### L IPID, TSH, CMP #### [facility] [address] [address] [address] Pauly Garner AST [Catalytic activity/Vol] 15 U/L Normal 14-36 [facility] Comment on above: Performed By: #### L IPID, TSH, CMP #### [facility] [address] [place] [address] Dr. Pauly Garner Bilirubin [Mass/Vol] 0.4 mg/dL Normal 0.2-1.3 [facility] Comment on above: Performed By: #### L IPID, TSH, CMP #### [facility] [address] [place] [address] Dr. Pauly Garner Calcium [Mass/Vol] 9.1 mg/dL Normal 8.4-10.2 [facility] Comment on above: Performed By: #### L IPID, TSH, CMP #### [facility] [address] [place] [address] Dr. Pauly Garner Chloride [Moles/Vol] 105 mmol/L Normal 98-107 [facility] Comment on above: Performed By: #### L IPID, TSH, CMP #### [facility] [address] [place] [address] Dr. Pauly Garner CO2 [Moles/Vol] 28.2 mmol/L Normal 22.0-30.0 [facility] Comment on above: Performed By: #### L IPID, TSH, CMP #### [facility] [address] [place] [address] Dr. Pauly Garner Creatinine [Mass/Vol] 0.95 mg/dL Normal 0.52-1.04 [facility] Comment on above: Performed By: #### L IPID, TSH, CMP #### [facility] [address] [place] [address] Dr. Pauly Garner EGFR-AF AFGHAN >60 Normal >=60 [facility] Comment on above: Performed By: #### L IPID, TSH, CMP #### [facility] [address] [place] [address] Dr. Pauly Garner EGFR-NON AF AFGHAN 57 mL/min/1.73m2 Critically low >=60 [facility] Comment on above: Performed By: #### L IPID, TSH, CMP #### [facility] [address] [address] [address] Pauly Garner Globulin (S) [Mass/Vol] 3.8 g/dL Normal [facility] Comment on above: Performed By: #### L IPID, TSH, CMP #### [facility] [address] [address] [address] Pauly Garner Glucose [Mass/Vol] 110 mg/dL Critically high 74-106 [facility] Comment on above: Performed By: #### L IPID, TSH, CMP #### [facility] [address] [place] [address] Dr. Pauly Garner Potassium [Moles/Vol] 4.0 mmol/L Normal 3.4-5.0 [facility] Comment on above: Performed By: #### L IPID, TSH, CMP #### [facility] [address] [place] [address] Dr. Pauly Garner Protein [Mass/Vol] 7.3 g/dL Normal 6.1-8.2 [facility] Comment on above: Performed By: #### L IPID, TSH, CMP #### [facility] [address] [place] [address] Dr. Pauly Garner Sodium [Moles/Vol] 143 mmol/L Normal 137-145 [facility] Comment on above: Performed By: #### L IPID, TSH, CMP #### [facility] [address] [place] [address] Dr. Pauly Garner Urea nitrogen [Mass/Vol] 17.0 mg/dL Normal 7.0-17.0 [facility] Comment on above: Performed By: #### L IPID, TSH, CMP #### [facility] [address] [place] [address] Dr. Pauly Garner Urea nitrogen/Creatinine [Mass ratio] 17.9 mg/mg Normal [facility] Comment on above: Performed By: #### L IPID, TSH, CMP #### [facility] [address] [place], [place] [address] Dr. Pauly Garner TSHon 12-19-2020 TSH 1.924 uIU/mL Normal 0.470-4.680 [facility] Comment on above: Performed By: #### L IPID, TSH, CMP #### [facility] [address] [address] [address] Pauly Garner TSH RANGE SEE BELOW Normal [facility] Comment on above: Result Comment: <0.3 4 UIU/ml HYPERTHYROID 0.34-5.60 UIU/ml EUTHYROID >5.60 UIU/ml HYPOTHYROID Performed By: #### L IPID, TSH, CMP #### [facility] [address] [address] [address] Pauly Garner Vital Signs Date Time Vital Sign Value Performing Clinician Facility 09-30-2023 10:01-0400 Body height 160 cm Kathleen Jessica OFFICE SUPPORT CLERK Work Phone: [facility] 09-30-2023 10:01-0400 Body mass index (BMI) [Ratio] 23.21 kg/m2 Kathleen Jessica OFFICE SUPPORT CLERK Work Phone: [facility] 09-30-2023 10:01-0400 Body temperature 98.29 [degF] Kathleen Romozpatrick OFFICE SUPPORT CLERK Work Phone: [facility] 09-30-2023 10:01-0400 Body weight 59.42 kg Kathleen Jessica OFFICE SUPPORT CLERK Work Phone: [facility] 09-30-2023 10:01-0400 Diastolic blood pressure 84 mm[Hg] Kathleen Jessica OFFICE SUPPORT CLERK Work Phone: [facility] 09-30-2023 10:01-0400 Heart rate 102 /min Kathleen Romozpatrick OFFICE SUPPORT CLERK Work Phone: [facility] Comment on above: 97% O2 09-30-2023 10:01-0400 Systolic blood pressure 122 mm[Hg] Kathleen Jessica OFFICE SUPPORT CLERK Work Phone: [facility] 09-11-2023 14:19-0400 Body height 162.56 cm [facility] 09-11-2023 14:19-0400 Body mass index (BMI) [Ratio] 22.2 kg/m2 [facility] 09-11-2023 14:19-0400 Body temperature 98.2 [degF] [facility] 09-11-2023 14:19-0400 Body weight 58.74 kg [facility] 09-11-2023 14:19-0400 Diastolic blood pressure 72 mm[Hg] [facility] 09-11-2023 14:19-0400 Heart rate 115 /min [facility] 09-11-2023 14:19-0400 SaO2% (BldA) [Mass fraction] 97 % [facility] 09-11-2023 14:19-0400 Systolic blood pressure 128 mm[Hg] [facility] 10-19-2021 15:50-0400 Body height 162.56 cm Diamond Barajas Other [employer] [facility] [employer] Other 10-19-2021 15:50-0400 Body mass index (BMI) [Ratio] 23.51 kg/m2 Diamond Jenn Other [employer] [facility] [employer] Other 10-19-2021 15:50-0400 Body temperature 98.6 [degF] Diamond Jenn Other [employer] Other 10-19-2021 15:50-0400 Body weight 62.14 kg Diamond Jenn Other [employer] Other 10-19-2021 15:50-0400 Respiratory rate 22 /min Diamond Jenn Other [employer] Other 10-19-2021 15:50-0400 SaO2% (BldA) [Mass fraction] 96 % Diamond Barajas Other [place] [employer] Other Encounters Encounter Date Encounter Type Care Provider Facility Start: 12-10-2023 End: 12-10-2023 Bamboo flowsheet Ailyn Reynaill CCC-A Work Phone: [facility] Start: 12-10-2023 End: 12-10-2023 Bamboo flowsheet Ailyn Prater [place] CCC-A Work Phone: [facility] Start: 12-10-2023 End: 12-16-2023 Clinical Support Ailyn Maharaj CCC-A Work Phone: [facility] Comment on above: Asymmetrical sensori neural hearing loss (Primary Dx); Dizziness Start: 09-30-2023 End: 09-30-2023 Office outpatient visit 15 minutes Kathleen Jessica OFFICE SUPPORT CLERK Work Phone: [facility] Comment on above: Recurrent acute sero us otitis media of both ears (Primary Dx); Vertigo, benign paroxysmal, bilateral Start: 09-30-2023 End: 09-30-2023 ambulatory KATHLEEN JESSICA Not Available Start: 09-11-2023 End: 09-11-2023 ambulatory [facility] Work Phone: Start: 09-11-2023 End: 09-11-2023 Patient encounter procedure [facility] Work Phone: Start: 06-05-2023 End: 06-05-2023 ambulatory COUGHLIN FAWWAD Not Available Start: 01-28-2023 Patient encounter procedure Kathleen Jessica OFFICE SUPPORT CLERK Work Phone: [facility] Start: 01-28-2023 End: 01-28-2023 ambulatory COUGHLIN FAWWAD Not Available Start: 11-28-2022 End: 11-28-2022 ambulatory Coughlin Fawwad Facility:[facility] Start: 11-28-2022 End: 11-28-2022 ambulatory MD Soto Garcia Work Phone: [facility] Work Phone: Start: 11-28-2022 End: 11-28-2022 Patient encounter procedure MD Soto Garcia Work Phone: [facility] [address] Work Phone: Start: 10-19-2021 End: 10-19-2021 ambulatory Diamond Barajas Other [facility] [employer] Other Start: 10-19-2021 Office outpatient ne w 20 minutes Diamond Barajas [facility] Start: 09-21-2021 End: 09-22-2021 ambulatory SHAIKH Lynsey KATHE Facility:[facility] Start: 12-19-2020 End: 12-20-2020 ambulatory RICHIE KANE FELICIANO Facility:[facility] Procedures Date Procedure Procedure Detail Performing Clinician Start: 12-10-2023 AUDITORY FUNCTION TESTS Ailyn Maharaj [facility] Work Phone: Start: 11-28-2022 Plain X-ray of bilat eral hands MD Soto Garcia Work Phone: Plan of Treatment Date Care Activity Detail Author Start: 01-29-2024 Medicare Annual Wellness (AWV) Medicare Annual Wellness (AWV) [facility] Start: 01-29-2024 Pneumococcal Vaccine : 65+ Years (1 of 1 - PCV) Pneumococcal Vaccine: 65+ Years (1 of 1 - PCV) [facility] Comment on above: Postponed from 02/22 (Patient Refused) Start: 01-02-2024 End: 01-02-2024 Patient encounter procedure 01/02/2024 1:00 PM EST Office Visit [facility] [address] [place] [address] Kathleen Jessica, JULIAN [address] [place] [address] [facility] Start: 12-10-2023 End: 12-10-2023 Clinical Support 12/10/2023 10:00 AM EDT Clinical Support [facility] [address] [facility] [phone] Ailyn Maharaj [facility] [address] [facility] [place] [address] Arrived [facility] Comment on above: Arrived Start: 10-13-2023 Influenza vaccination Influenza Vacc ine (#1) [facility] Start: 11-28-2022 Hemolytic complement CH50 level [facility] Start: 11-28-2022 Hepatitis B core antibody measurement [facility] Start: 11-28-2022 [facility] Complement C3 [Mass/volume] in Serum or Plasma [facility] Complement C4 [Mass/volume] in Serum or Plasma [facility] Hepatitis B virus surface Ab [Presence] in Serum [facility] Hepatitis B virus surface Ag [Presence] in Serum or Plasma by Immunoassay [facility] Hepatitis C virus Ig G Ab [Presence] in Serum or Plasma by Immunoassay [facility] Homogenous nuclear A b pattern [Titer] in Serum [facility] Nuclear Ab [Titer] i n Serum [facility] Payers Date Payer Category Payer Self-pay [address] [facility] [employer] [id number] 2021 Unknown [employer] [facility] [employer] [id number] 2021[place] [address] [id number] 2021 Private Health Insurance [id number] 2008 Medicare [id number] 5 1959 Medicare [id number] 1959 Private Health Insurance [id number] 1943 Unknown [id number] 1943 Unknown [id number] 1943 Unknown [id number] 1943 Unknown [id number] 1943 Unknown [id number] 1943 Unknown [id number] Unknown [id number] Social History Date Type Detail Facility Start: 09-30-2023 Sex Assigned At [employer] Other Start: 1945 Sex Assigned At Female [facility] Start: 06-05-2023 Tobacco smoking status TXIS Never smoked tobacco [facility] Start: 06-05-2023 Tobacco use and exposure Smokeless tobacco non-user [facility] Start: 09-30-2023 Alcoholic beverage intake Lifetime non-drinker (finding) [facility] Start: 09-30-2023 History of Social function [facility] Start: 1945 Sex assigned at Not on file [facility] NEGATED: Highlighted rowStart: NINF History of tobacco use Passive smoker [facility] Clinical Notes 10-19-2021 to 12-16-2023 Telephone Encounter - RACHAEL Blanton - 12/16/2023 9:41 AM ESTTelephone Encounter - RACHAEL Blanton - 12/16/2023 9:41 AM ESTDeRACHAEL Lopez - 12/10/2023 10:00 AM EDT Note Date & Type Note Facility 12-16-2023 Telephone encounter Note Called pt and reviewed Dr Llanes's recommendation. No ENT follow up needed [facility] Work Phone: 12-16-2023 Miscellaneous Notes Called pt and reviewed Dr Llanes's recommendation. No ENT follow up needed Repeat audio 1 year, No Deshaun indicated Pt referred for BPPV bilateral and acute OM bilateral.. Audio completed today and can be reviewed in the PROCEDURE TAB under the main CHART REVIEW TAB. Please review and determine if further follow up is indicated. If you want dsehaun pt needs to see PT. She can barely move from supine to sit because of back issues. Thanks Mine documented in this encounter [facility] 12-10-2023 Telephone encounter Note Repeat audio 1 year, No Deshaun indicated [facility] Work Phone: 12-10-2023 Telephone encounter Note Pt referred for BPPV bilateral and acute OM bilateral.. Audio completed today and can be reviewed in the PROCEDURE TAB under the main CHART REVIEW TAB. Please review and determine if further follow up is indicated. If you want deshaun pt needs to see PT. She can barely move from supine to sit because of back issues. Thanks Mine [facility] 12-10-2023 History of Presen t illness Narrative History: Pt was referred to Dr. Llanes because of acute ROSETTA both ears and BPPV both ears. Per Dr. Llanes, pt was scheduled only for an audiogram. Pt states she gets spinning sensation when she lays on the right side, onset 3 years ago when she moved to [place]. Pt also gets episodes where she feels [...] make ENT recommendations. documented in this encounter [facility] 09-30-2023 History of Presen t illness Narrative Associated Problem(s): Vertigo, benign paroxysmal, bilateral Takes Meclizine PRN (Does not like to take medications more than required) Referral sent to ENT- Dr. Llanes- ENT Information given on [employer] Images from the original note were not included. Subjective Patient ID: Do Girard is a 78 y.o. female who presents for Dizziness (PT C/O OF DIZZINESS FOR SEVERAL MONTHS NOW. PT WOULD LIKE REFERRAL TO ENT. PT STATES IT'S POSITIONAL. C/O OF ROOM SPINNING AND THINGS GET WAVY IN HER HEAD AND GETS SHAKY UNTIL SHE STANDS. THEN SXS RESIDE. ). HPI Went to ER 09/[address] of head done Unremarkable. Admits: Reports symptoms of dizziness Room spinning Recurrent otitis media- has had multiple courses of ABT therapy-Ceftin in May Pressure in ears Takes Zyrtec and Flonase- minimal relief. Denies: N/V Hypotension tachycardia Review of Systems Constitutional: Negative for activity change, appetite change, chills, fatigue, fever, night sweats and unexpected weight change. HENT: Positive for sinus pressure. Negative for congestion, ear pain, rhinorrhea, sinus pain, sore throat, trouble swallowing and voice change. Eyes: Negative for discharge and visual disturbance. Respiratory: Negative for chest tightness, shortness of breath and wheezing. Cardiovascular: Negative for chest pain, palpitations and leg swelling. Gastrointestinal: Negative for abdominal distention, abdominal pain, blood in stool, constipation, diarrhea, nausea and vomiting. Genitourinary: Negative for difficulty urinating, dysuria, flank pain, hematuria and pelvic pain. Musculoskeletal: Negative for arthralgias, joint swelling and neck pain. Skin: Negative for rash and wound. Neurological: Positive for dizziness. Negative for tremors, syncope, weakness, light-headedness, numbness and headaches. Psychiatric/Behavioral: Negative for sleep disturbance and suicidal ideas. The patient is not nervous/anxious. Hematological: Does not bruise/bleed easily. Endocrine: Negative for cold intolerance, heat intolerance, polydipsia, polyphagia and polyuria. Objective Physical Exam Constitutional: Appearance: Normal appearance. HENT: Head: Normocephalic. Right Ear: External ear normal. Left Ear: External ear normal. Nose: Nose normal. Mouth/Throat: Mouth: Mucous membranes are moist. Pharynx: Oropharynx is clear. Eyes: Pupils: Pupils are equal, round, and reactive to light. Cardiovascular: Rate and Rhythm: Normal rate and regular rhythm. Pulses: Normal pulses. Pulmonary: Effort: Pulmonary effort is normal. Breath sounds: Normal breath sounds. Abdominal: General: Abdomen is flat. Bowel sounds are normal. Palpations: Abdomen is soft. Musculoskeletal: General: Normal range of motion. Cervical back: Normal range of motion. Skin: General: Skin is warm. Capillary Refill: Capillary refill takes less than 2 seconds. Neurological: Mental Status: She is alert and oriented to person, place, and time. Psychiatric: Mood and Affect: Mood normal. Behavior: Behavior normal. Assessment/Plan Problem List Items Addressed This Visit Recurrent acute serous otitis media of both ears - Primary Relevant Orders Ambulatory referral to ENT Vertigo, benign paroxysmal, bilateral Takes Meclizine PRN (Does not like to take medications more than required) Referral sent to ENT- Dr. Llanes- ENT Information given on [employer] Relevant Orders Ambulatory referral to ENT documented in this encounter [facility] 09-30-2023 Instructions Kathleen Jessica NP - 09/30/2023 10:00 AM EDT Referral sent to ENT- Dr. Llanes documented in this encounter [facility] 10-19-2021 Evaluation note Encounter Date Diagnosis Assessment [...] no improvement in 2 to 3 days. [employer] Other Evaluation noteNo assessment information available [facility] Work Phone: Evaluation note* Diagnosis Encounter for Medicare annual wellness exam- Primary Undifferentiated connective tissue disease (CMS/HCC) Unspecified diffuse connective tissue disease Recurrent acute serous otitis media of both ears- Primary Bilateral impacted cerumen Impacted cerumen Recurrent acute serous otitis media of both ears- Primary Vertigo, benign paroxysmal, bilateral Asymmetrical sensorineural hearing loss- Primary Sensorineural hearing loss, asymmetrical Dizziness Dizziness and giddiness documented [facility] encounter [facility] Diagnosis Recurrent acute serous otitis media of both ears- Primary Vertigo, benign paroxysmal, bilateral documented [facility] this [facility] N[facility]ative - Reported* Type Description Date Medical History Arthritis [employer] Other Reason for referral (narrative)* Consultation (Routine) - Authorized Specialty Diagnoses / Procedures Referred By April faulkner Referred To Contact Otolaryngology Diagnoses Recurrent acute serous otitis media of both ears Vertigo, benign paroxysmal, bilateral Procedures HI OFFICE/OUTPATIENT [facility] MDM 60 MINUTES Kathleen Jessica NP [address] [place] [phone] Luis Carlos [place]anes, [place] [address] [place] [address] Referral ID Status Reason Start Date Expiration Date Visits Requested Visits Authorized [id number] Authorized Specialty Services Required 09/30/2023 03/28/2024 1 1 Scheduling Instructions Please include OV notew from today and from 06/03/2023 [facility] Summary Purpose Family History No Family History [...] DATE CREATED AUTHOR AUTHOR'S ORGANIZ ATION 12/07/2022 [facility] DATE CREATED AUTHOR AUTHOR'S ORGANIZ ATION 12/11/2023 [facility] d[facility] Specialists EPIC REASON FOR VISIT (unrecogniz ed section and content) Reason Comments Dizziness PT C/O OF DIZZINESS FOR SEVERAL MONTHS NOW. PT WOULD LIKE REFERRAL TO ENT. PT STATES IT'S POSITIONAL. C/O OF ROOM SPINNING AND THINGS GET WAVY IN HER HEAD AND GETS SHAKY UNTIL SHE STANDS. THEN SXS RESIDE. Care Teams (unrecognized sec tion and content) [...] September 11, 2023 End: September 11, 2023 Printer Slotter Operator Relationship Specialty Start Date End Date Issa Diop MD [address] [place] [phone] PCP - General Family Medicine 09/24/23 Kathleen Jessica NP [address] [place] [address] Nurse Practitioner Family Medicine 09/24/23 Printer Slotter Operator Relationship Specialty Start Date End Date Issa Diop MD [address] [place] [place] [address] PCP - General Family Medicine 09/24/23 Kathleen Jessica NP [address] [place] [phone] Nurse Practitioner Family Medicine 09/24/23 Printer Slotter Operator Relationship Specialty Start Date End Date Issa Diop MD [address] [place] [phone] PCP - General Family Medicine 09/24/23 Kathleen Jessica NP [address] [place] [phone] Nurse Practitioner Family [facility] 09/24/23 Printer Slotter Operator Relationship Specialty Start Date End Date Issa Diop MD [address] [place] [phone] PCP - General Family Medicine 09/24/23 Kathleen Jessica NP [address] [place] [address] Nurse Practitioner [facility] Medicine 09/24/23 Goals (unrecognized section and content) Goals [...] BE BASED ON THE PRIMARY CLINICAL RECORDS. [facility] [employer] [facility]. provides no warranty or guarantee of the accuracy or completeness of information in this document.
[2024-03-13 13:39] LABS: Erythrocyte Sedimentation Rate 18 mm/hr (<=30)
[2024-03-13 13:53] LABS: C Reactive Protein 0.94 mg/dL (<=0.50)
== END 2024-03-13 13:12 | disposition home or self-care (01) ==
LOC: LAB 13:11
PROVIDERS: Visit Provider Internal Medicine Rheumatology
DX: R76.0 Raised antibody titer (principal); R70.0 Elevated erythrocyte sedimentation rate
CPT/HCPCS: 36415; 83516; 85652; 86140; 86235

== ENCOUNTER 2024-11-10 13:04 | Outpatient (OUT) | payer MEDICARE, OTHER, SELFPAY ==
--- OUTSIDE RECORDS SUMMARY | 2024-11-10 13:07 | XMS_ITS | Encounter Summary ---
Author Organization [facility] Address [address] [place] [address] Care Team Providers Care Manufacturing Plant Controller Name Role Phone Shaikh ED Archuleta Primary Care Provider [phone] Shaikh ED Archuleta Primary Care Provider [phone] Issa Diop MD Primary Care Provider [phone] Kathleen Jessica NP Unavailable [phone] Encounter Details Date Type Department Care Team (Late st Contact Info) Description 03/18/2023 Orders Only [facility] [address] [place] [address] Shaikh Archuleta MD [address] [place] [address] Social History Tobacco Use Types Packs/Day Years Used Date Smoking Tobacco: Never Smokeless Tobacco: Never Alcohol Use Standard Drinks/Week Comments Never 0 (1 standard drink = 0.6 oz pur e alcohol) PHQ-2 Answer Date Recorded Patient Health Questionnaire-2 Score 0 01/28/2023 Comments Unknown Sex and Gender Information Value Date Recorded Sex Assigned at Not on file Legal Sex Female 4:29 PM EDT Gender Identity Not on file Sexual Orientation Not on file documented as of this encounter Plan of Treatment Not on file documented as of this encounter Procedures Procedure Name Priority Date/Time Associated Diagnosis Comments MISCELLANEOUS LAB TEST Routine 11/15/2022 11:05 AM EDT MISCELLANEOUS LAB TEST Routine 11/15/2022 10:47 AM EDT documented in this encounter Results * - Miscellaneous Test (11/15/2022 11:05 AM EDT) us Shaikh Kathe WARD LAB BLOOD ORDERABLES Final Resu lt * - Miscellaneous Test (11/15/2022 10:47 AM EDT) us Shaikh Kathe [facility] LAB BLOOD ORDERABLES Final Resu lt documented in this encounter Visit Diagnoses Not on filedocumented in this encounter Additional Health Concerns Assessment Noted Time PHQ-9 Depression Total Score: 1 01/29/20 2:00 PM EST documented as of this encounter Care Teams Manufacturing Plant Controller Relationship Specialty Start Date End Date Shaikh Archuleta MD PCP - General Internal Medicine 11/11/22 06/04/23 Shaikh Archuleta MD PCP - General Internal Medicine 06/05/23 09/23/23 Issa Diop MD PCP - General Family Medicine 09/24/23 Kathleen Jessica NP Nurse Practitioner Family Medicine 09/24/23 documented as of this encounter
[2024-11-10 13:28] LABS: Hematocrit 38.7 % (36.0-48.0); Hemoglobin 12.9 g/dL (12.0-16.0); Immature Granulocytes Abs Auto 0.03 10^3/uL (0.00-0.03); Immature Granulocytes Pct Auto 0.4 % (0.0-0.5); Lymphocytes Absolute Auto 1.7 10^3/uL (1.2-3.8); Mean Corpuscular HGB Conc 33.3 g/dL (29.9-35.2); Mean Corpuscular Hemoglobin 29.3 pg (26.7-34.0); Mean Corpuscular Volume 87.8 fL (81.0-99.0); Platelet Count 179 10^3/uL (150-450); Red Blood Count 4.41 10^6/uL (4.20-5.40); White Blood Count 7.6 10^3/uL (4.0-11.0)
[2024-11-10 13:44] LABS: Alanine Aminotransferase 21 U/L (14-59); Albumin Globulin Ratio 0.9; Albumin Level 3.2 g/dL (3.4-5.0); Alkaline Phosphatase 125 U/L (46-116); Anion Gap 11.6; Aspartate Amino Transferase 14 U/L (15-37); Blood Urea Nitrogen 21.0 mg/dL (7.0-18.0); Calcium 8.7 mg/dL (8.5-10.1); Carbon Dioxide 26.4 mmol/L (21.0-32.0); Chloride 105 mmol/L (98-107); Estimated GFR (African America >60 (>=60 mL/min/1.73m^2); Estimated GFR (Non-African Ame 56 (>=60 mL/min/1.73m^2); Globulin 3.4 g/dL; Glucose 124 mg/dL (74-106); Potassium 4.0 mmol/L (3.5-5.1); Sodium 139 mmol/L (136-145); Total Protein 6.6 g/dL (6.4-8.2)
== END 2024-11-10 13:05 | disposition home or self-care (01) ==
LOC: LAB 13:05
PROVIDERS: PCP Nurse Practitioner; Visit Provider Nurse Practitioner Family
DX: M05.79 Rheumatoid arthritis with rheumatoid factor of multiple sites without organ or systems involvement (principal); Z79.899 Other long term (current) drug therapy
CPT/HCPCS: 36415; 80053; 85025; 85652; 86140